=== PATIENT | male | born 1965 | race Caucasian/White ===

== ENCOUNTER 2020-02-14 14:40 | Outpatient (CLI) | payer MEDICARE, SELFPAY ==
--- NOTE | ~2020-02-14 | CT_ITS ---
EXAMINATION: CT lung screening DATE: 02/14/2020 15:27 INDICATION: Personal history of tobacco dependence, current smoker with 30 pack year history TECHNIQUE: Computed tomography (CT) of the chest was performed without intravenous contrast. The dose -length product (DLP) was 188.02 mGy-cm. 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 COMPARISON: None FINDINGS: There is a 2 mm nodule of the left upper lobe on image 43. There are multiple centrilobular groundglass nodules of the lung apices which measure up to 6 mm (image 35). Oval, smooth nodules in association with the major fissure on the left are consistent with fissural lymph nodes. There is no pleural effusion or pneumothorax. No pathologically enlarged thoracic lymph nodes are identified. The heart size is normal. There is calcified coronary artery atherosclerosis. Subendocardial fat deposit ion in the lateral wall of the left ventricle is consistent with prior myocardial infarction. There i s a 2.8 x 1.9 cm right supraclavicular mass. There is moderate thoracic spondylosis. There are partia lly imaged changes of anterior and posterior fusion procedures in the lower cervical spine. IMPRESSION: 1. Lung-RADS category 2S: Benign appearance or behavior. Continue annual screening with noncontrast l ow-dose chest CT in 12 months. 2. Right supraclavicular mass of unclear etiology which could reflect a neoplasm or complex cystic le anastasiia. Ultrasound-guided biopsy is recommended. This finding and recommendation were discussed with Ab TRAE Nowak at 0838 hours on 02/15/2020. Reviewed, dictated and finalized at location A. IMPRESSION: 1. Lung-RADS category 2S: Benign appearance or behavior. Continue annual screen ing with noncontrast low-dose chest CT in 12 months. 2. Right supraclavicular mass of unclear etiology which could reflect a neoplas m or complex cystic lesion. Ultrasound-guided biopsy is recommended. This findi ng and recommendation were discussed with Herlinda M. Beedy, PAC at 0838 hours on .
== END 2020-02-14 14:41 | disposition home or self-care (01) ==
PROVIDERS: PCP Family Medicine; Visit Provider Physician Assistant Medical
DX: Z12.2 Encounter for screening for malignant neoplasm of respiratory organs (principal); R91.8 Other nonspecific abnormal finding of lung field; Z87.891 Personal history of nicotine dependence
CPT/HCPCS: G0297

== ENCOUNTER 2020-03-12 13:15 | Outpatient (CLI) | payer MEDICARE, SELFPAY ==
--- NOTE | ~2020-03-12 | US_ITS ---
EXAMINATION: US soft tissue head and neck DATE: 03/12/2020 13:59 INDICATION: Localized swelling, mass, and lump, trunk. TECHNIQUE: Multiple grayscale and Doppler ultrasound images of the right neck were obtained. COMPARISON: Chest CT 02/14/2020, cervical spine CT 09/12/2018 FINDINGS: In the right supraclavicular region, there is a 2.5 x 2.3 cm thin-walled cyst without solid component. IMPRESSION: 1. 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 D ue to the lack of a solid component, the biopsy was canceled. Reviewed, dictated and finalized at location A. IMPRESSION: 1. Thin-walled cyst in right supraclavicular region without solid component, li yvrose a lymphangioma. Due to the lack of a solid component, the biopsy was cance led.
== END 2020-03-12 13:16 | disposition home or self-care (01) ==
LOC: ANHIMG 13:20
PROVIDERS: PCP Family Medicine; Visit Provider Physician Assistant Medical
DX: R22.2 Localized swelling, mass and lump, trunk (principal)
CPT/HCPCS: 76536

== ENCOUNTER 2020-05-16 01:42 | Outpatient (CLI) | payer MEDICARE, SELFPAY ==
[2020-05-16 18:40] LABS: SARS-CoV-2 RNA PCR Negative
== END 2020-05-16 01:43 | disposition home or self-care (01) ==
LOC: ANHCOVIDDT 01:42
PROVIDERS: PCP Family Medicine; Visit Provider Internal Medicine Gastroenterology
DX: Z01.812 Encounter for preprocedural laboratory examination (principal); Z20.828 Contact with and (suspected) exposure to other viral communicable diseases
CPT/HCPCS: 87635; C9803; U0003

== ENCOUNTER 2020-05-18 00:55 | Day surgery (SDC) | payer MEDICARE, SELFPAY ==
[2020-05-10 14:27] VITALS: BMI 27.1
[2020-05-18 11:16] VITALS: BP 112/68; PULSE 75; RESP 16; TEMP 36.6; O2SAT 100; BMI 26.9
[2020-05-18] MEDS: LACTATED RINGERS 1,000 ML 150 ML IV CONT (11:29)
--- NOTE | 2020-05-18 11:49 | PM.HPGS ---
History of Present Illness History of Present Illness Consent: Risks, benefits, and alternatives have been discussed and questions answered. Patient agrees to proceed with procedure. Chief complaint: Neoplasm Screening Narrative: Rober Noriega is a 55 year old male here for screening colonoscopy Review of Systems Constitutional: Constitutional: Denies headache(s) and Denies weakness Eyes: Eyes: Denies blurry vision ENT: Reports Normal hearing present, Denies headache(s) and Denies neck pain Cardiovascular: Cardiovascular: Denies chest pain and Denies dyspnea Respiratory: Respiratory: Denies dyspnea Gastrointestinal: Gastrointestinal: Reports no additional gastrointestinal complaints Genitourinary: Genitourinary: Denies dysuria Musculoskeletal: Musculoskeletal: Denies neck pain Integumentary/Breasts: Skin/Breast: Denies dry skin Neurologic: Reports Normal hearing present, Denies headache(s) and Denies weakness Psychiatric: Psychiatric: Denies anxiety Endocrine: Endocrine: Denies change in body appearance Hematologic/Lymphatic: Hematologic/Lymphatic: Denies easy bleeding Allergic/Immunologic: Allergic/Immunologic: Denies urticaria [facility] Past Medical History Medical History (Updated 05/18/20 @ 12:06 by Shahzad Clemons MD) Arthritis CAD in [place] artery has stent in place Colon cancer screening Dyslipidemia Social History Social History Years smoked: 40 Smoking status: Current every day smoker Tobacco type: cigarettes Alcohol intake: current Alcohol use details: Seldom Substance use: never Substance use type: does not use Gender identity (if verbalized by the patient): Male Meds Home Medications and Allergies Home Medications Medication Instructions Recorded Confirmed Type trazodone 100 mg tablet 100 mg PO DAILY #180 tablet 01/25/20 05/10/20 Rx venlafaxine 75 mg capsule,extended 75 mg PO DAILY #90 cap 01/31/20 05/10/20 Rx release 24 hr simvastatin 40 mg tablet 40 mg PO DAILY #30 tablet 03/05/20 05/10/20 Rx bupropion HCl 300 mg 24 hr tablet, 300 mg PO QAM #30 tablet 04/03/20 05/10/20 Rx extended release peg 3350-electrolytes 236 240 ml PO Q10M #4000 ml 04/25/20 Rx gram-22.74 gram-6.74 gram-5.86 gram solution aspirin 81 mg PO DAILY 05/10/20 05/10/20 History Allergies Allergy/AdvReac Type Severity Reaction Status Date / Time No Known Allergies Allergy Verified 05/18/20 11:15 Vital Signs Vital Signs - 24 hr 05/18/20 11:16 Temperature 97.9 F Pulse Rate 75 Respiratory Rate 16 Blood Pressure 112/68 Pulse Oximetry 100 Exam Const: General: comfortable and no acute distress HENMT: General nose exam: Normal nares present Eyes: General: appearance normal, both eyes and all related structures Neck: Neck: no JVD Resp: Auscultation: clear to auscultation bilaterally Cardio: Rate: regular rate Rhythm: regular rhythm GI: Inspection: non-distended GI Palp: Yes Soft to palpation Skin: General skin exam: normal color Neuro: General: gait normal Speech: normal speech Extrem: General: normal to inspection Psych: Mental Status: mental status grossly normal Assessment and Plan Assessment and plan (1) Colon cancer screening: Code(s): Z12.11 - Encounter for screening for malignant neoplasm of colon Status: Acute Assessment and Plan: will proceed with colonoscopy
--- NOTE | 2020-05-18 11:50 | WPDANESEPPF ---
Anes - Initial Pre Proc Eval Procedure: Operation Date: 05/18/20 12:30 Proposed Procedures p Screening Colonoscopy - Shahzad Clemons MD Date/Time: 05/18/20 11:50 Surgeon: Shahzad Clemons MD Pre Op Diagnosis: Neoplasm Screening Patient Data Age: 55 Gender: M Height: 6 ft 2 in Weight: 95.2 kg Last Vital Signs Temp 97.9 F 05/18/20 11:16 Pulse 75 05/18/20 11:16 Resp 16 05/18/20 11:16 BP 112/68 05/18/20 11:16 Pulse Ox 100 05/18/20 11:16 Allergies Allergy/AdvReac Type Severity Reaction Status Date / Time No Known Allergies Allergy Verified 05/18/20 11:15 Home Medications Medication Instructions Recorded Confirmed Type trazodone 100 mg tablet 100 mg PO DAILY #180 tablet 01/25/20 05/10/20 Rx venlafaxine 75 mg capsule,extended 75 mg PO DAILY #90 cap 01/31/20 05/10/20 Rx release 24 hr simvastatin 40 mg tablet 40 mg PO DAILY #30 tablet 03/05/20 05/10/20 Rx bupropion HCl 300 mg 24 hr tablet, 300 mg PO QAM #30 tablet 04/03/20 05/10/20 Rx extended release peg 3350-electrolytes 236 240 ml PO Q10M #4000 ml 04/25/20 Rx gram-22.74 gram-6.74 gram-5.86 gram solution aspirin 81 mg PO DAILY 05/10/20 05/10/20 History Patient hx anesthesia problems: none Family hx anesthesia problems: none [facility] Past Medical History Medical History (Updated 05/18/20 @ 11:49 by Lauri Lewis MD) Arthritis CAD in [place] artery has stent in place Dyslipidemia Social History Social History Years smoked: 40 Smoking status: Current every day smoker Tobacco type: cigarettes Alcohol intake: current Alcohol use details: Seldom Substance use: never Substance use type: does not use Gender identity (if verbalized by the patient): Male Anes - Eval Final PreProcedure Day of Procedure 05/18/20 11:50 Patient weight: normal Heart: regular rate and rhythm Lungs: clear to auscultation Airway: Mallampati scale class II Neurological: alert and oriented Last oral intake: >/= 8 hours ASA classification: III Emergent: no Anesthetic plan: proceed Anesthesia type and monitoring: general GIVS and standard monitoring Informed Consent: The patient's anesthetic plan and its attendant risks and benefits were discussed with the patient/family/POA. Questions were solicited and answers provided to the satisfaction of the patient/family/POA.
[2020-05-18 12:09] VITALS: BP 101/53; PULSE 68; RESP 17; O2SAT 96
[2020-05-18 12:19] VITALS: BP 101/53; PULSE 65; RESP 19; O2SAT 95
[2020-05-18 12:29] VITALS: BP 115/75; PULSE 64; RESP 18; O2SAT 97
== END 2020-05-18 12:52 | disposition home or self-care (01) ==
PROVIDERS: PCP Family Medicine; Visit Provider Internal Medicine Gastroenterology
PROC: 0DJD8ZZ Inspection of Lower Intestinal Tract, Via Natural or Artificial Opening Endoscopic (ICD-10-PCS; CPT 45378; principal; 2020-05-18 12:30)
DX: Z12.11 Encounter for screening for malignant neoplasm of colon (principal); K57.30 Diverticulosis of large intestine without perforation or abscess without bleeding; K64.8 Other hemorrhoids; I25.10 Atherosclerotic heart disease of native coronary artery without angina pectoris; E78.5 Hyperlipidemia, unspecified; Z95.5 Presence of coronary angioplasty implant and graft; Z79.82 Long term (current) use of aspirin; F17.210 Nicotine dependence, cigarettes, uncomplicated
CPT/HCPCS: 45378; J2001; J2704; J7120

== ENCOUNTER 2021-04-22 14:47 | Emergency (ER) | payer MEDICARE, SELFPAY ==
[2021-04-22 14:56] VITALS: BP 131/89; PULSE 76; RESP 16; TEMP 36.7; O2SAT 97
--- NOTE | 2021-04-22 15:19 | ED.GENADULT ---
HPI - General Adult General Chief complaint: Ear Stated complaint: clogged ears Source: patient Mode of arrival: ambulatory Limitations: no limitations History of Present Illness HPI narrative: Patient is a 56-year-old male presents to the [facility] via POV for evaluation of clogged ears that has been present for 3 days. Additionally he reports a history of cerumen impactions. Today symptom is identical to previous cerumen impactions. Denies associated signs and symptoms. No relief with OTC Debrox. Nothing improves or worsen symptoms. Related Data Home Medications Medication Instructions Recorded Confirmed aspirin 81 mg PO DAILY 05/10/20 04/22/21 Allergies Allergy/AdvReac Type Severity Reaction Status Date / Time No Known Allergies Allergy Verified 04/22/21 15:03 Review of Systems Review of Systems: Denies pain, fever, chills, sweats, change in appetite, poor p.o. intake, malaise, headache, rhinorrhea, sinus problems, tinnitus, vertigo, lightheadedness, hearing loss, muffled hearing, ear drainage, nausea, vomiting, sore throat, cough, shortness of breath, lymphadenopathy, chest pain, heart palpitations, and heart murmur. PMFSH Past Medical History Medical History Arthritis BMI 27.0-27.9,adult BMI 28.0-28.9,adult CAD in [place] artery has stent in place Colon cancer screening Dyslipidemia Physical exam, pre-employment Tobacco abuse Family History Family History Father Family history of lung cancer Patient's father is , Onset Age: 72 Social History Social History Years smoked: 40 Smoking status: Current every day smoker Tobacco type: cigarettes Alcohol intake: current Alcohol use details: Seldom Substance use: never Substance use type: does not use Gender identity (if verbalized by the patient): Male Comments I have reviewed and agree with the patient's past medical, surgical, social, and family hx as documented by the RN. There is no relevant family history pertinent to the presenting complaint. Exam Narrative: GENERAL: Well-appearing, well-nourished, and in no acute distress. HEAD: Normocephalic, atraumatic. No sinus tenderness or facial swelling appreciated. EYES: PERRLA and EOMI. No evidence of erythema, swelling, or drainage. ENT: Unable to visualize bilateral TMs due to moderate cerumen impactions and bilateral external ear canals. Bilateral external ears normal. Bilateral TMs are normal.No TM perforation. Nares clear, no rhinorrhea or epistaxis. Bilateral turbinates without erythema/ swelling. Mucous membranes moist and pink. Uvula is midline without erythema and swelling. No evidence of petechial rash, cobblestoning, lesions, ulcers, erythema, swelling, exudates, peritonsillar abscess, tenting, or drooling. Breath odor and voice normal. NECK: Supple. No Lymphadenopathy or nuchal rigidity appreciated. CHEST: Bilateral lung keys are clear to auscultation. No respiratory distress. No evidence of cough or pleuritic cp upon examination. HEART: Regular rate and rhythm. No murmur, gallop, or rub heard. EXTREMITIES: Normal range of motion. No edema. SKIN: Warm, dry, no rash. NEURO: No focal deficits. Alert and oriented x3. Course Vital Signs Vital signs: Vital Signs Temperature 98.1 F 04/22/21 14:56 Pulse Rate 76 04/22/21 14:56 Respiratory Rate 16 04/22/21 14:56 Blood Pressure 131/89 04/22/21 14:56 Pulse Oximetry 97 04/22/21 14:56 Temperature 98.1 F 04/22/21 14:56 Pulse Rate 76 04/22/21 14:56 Respiratory Rate 16 04/22/21 14:56 Blood Pressure 131/89 04/22/21 14:56 Pulse Oximetry 97 04/22/21 14:56 Due to an elevated blood pressure, I had a detailed discussion with the patient and/or guardian regarding the need for follow-up with their pr
== END 2021-04-22 15:55 | disposition home or self-care (01) ==
PROVIDERS: Emergency Provider Nurse Practitioner Family; PCP Family Medicine
DX: H61.23 Impacted cerumen, bilateral (principal); F17.210 Nicotine dependence, cigarettes, uncomplicated; M19.90 Unspecified osteoarthritis, unspecified site; I25.10 Atherosclerotic heart disease of native coronary artery without angina pectoris; Z95.5 Presence of coronary angioplasty implant and graft; E78.5 Hyperlipidemia, unspecified
CPT/HCPCS: 69209; 99212; A9270; G0463

== ENCOUNTER 2021-05-06 09:23 | Outpatient (CLI) | payer MEDICARE, SELFPAY ==
--- NOTE | 2021-05-06 09:31 | EST_ITS ---
Patient Info Name: Rober Noriega Age: 56 years : 1965 Gender: Male Ht: 73 in Wt: 216 lbs BSA: 2.26 m2 HR: 75 bpm BP: 141 / 87 mmHg Heart Rhythm: Sinus Rhythm Exam Date: 05/06/2021 10:20 AM Exam Location: [facility] Patient Status: Outpatient Admit Date: 05/06/2021 Staff Ordering Physician: Darwin Ann DO Ice Skating Teacher: BING Attending Provider: Darwin Ann DO Referring Physician: Seth GONZALEZ; Exercise Technologist: Marie Caban RDCS Exercise Physician: Darwin Ann DO Exam Type: CA stress echo Study Info Indications I25.10 - Atherosclerotic heart disease of [place] coronary artery without angina pectoris Treadmill exercise stress echocardiogram is performed. Summary 1. 1. Negative Marc exercise stress test for ischemic ST changes by ECG criteria. 2. 2. Good functional capacity, achieving 10.9 METs of workload. 3. 3. Baseline hypertension. 4. 4. Appropriate HR response to exercise. 5. 5. Appropriate HR recovery at 1 minute post exercise. 6. 6. Negative stress echocardiogram for ischemia by wall motion analysis. 7. 7. Patient informed of the above results. Stress Echo Findings Left Ventricle Appropriate increase in LV endocardial thickening with systole. Appropriate augmentation of contractility with systole. No wall motion abnormality. Left Ventricle Normal LV systolic function, no wall motion abnormality. Protocol: Marc Stress ECG Details Stage: REST Duration (min): 4 min : 54 sec Speed (mph): 0.0 Grade (%): 0 HR (bpm): 72 SBP (mmHg): 141 DBP (mmHg): 87 METS: --- Stage: REST Duration (min): 13 min : 22 sec Speed (mph): 0.0 Grade (%): 0 HR (bpm): 75 SBP (mmHg): 141 DBP (mmHg): 87 METS: --- Stage: STAGE 1 Duration (min): 1 min : 0 sec Speed (mph): 1.7 Grade (%): 10 HR (bpm): 95 SBP (mmHg): 141 DBP (mmHg): 87 METS: --- Stage: STAGE 1 Duration (min): 2 min : 0 sec Speed (mph): 1.7 Grade (%): 10 HR (bpm): 105 SBP (mmHg): 141 DBP (mmHg): 87 METS: --- Stage: STAGE 1 Duration (min): 3 min : 0 sec Speed (mph): 1.7 Grade (%): 10 HR (bpm): 110 SBP (mmHg): 187 DBP (mmHg): 83 METS: --- Stage: STAGE 2 Duration (min): 1 min : 0 sec Speed (mph): 2.5 Grade (%): 12 HR (bpm): 112 SBP (mmHg): 187 DBP (mmHg): 83 METS: --- Stage: STAGE 2 Duration (min): 2 min : 0 sec Speed (mph): 2.5 Grade (%): 12 HR (bpm): 116 SBP (mmHg): 192 DBP (mmHg): 81 METS: --- Stage: STAGE 2 Duration (min): 3 min : 0 sec Speed (mph): 2.5 Grade (%): 12 HR (bpm): 118 SBP (mmHg): 192 DBP (mmHg): 81 METS: --- Stage: STAGE 3 Duration (min): 1 min : 0 sec Speed (mph): 3.4 Grade (%): 14 HR (bpm): 127 SBP (mmHg): 196 DBP (mmHg): 83 METS: --- Stage: STAGE 3 Duration (min): 2 min : 0 sec Speed (mph): 3.4 Grade (%): 14 HR (bpm): 133 SBP (mmHg): 196 DBP (mmHg): 83 METS:
== END 2021-05-06 09:24 | disposition home or self-care (01) ==
PROVIDERS: PCP Family Medicine; Visit Provider Internal Medicine Cardiovascular Disease
DX: I25.10 Atherosclerotic heart disease of native coronary artery without angina pectoris (principal)
CPT/HCPCS: 93351

== ENCOUNTER 2022-01-14 13:59 | Outpatient (CLI) | payer MEDICARE, SELFPAY ==
--- NOTE | ~2022-01-14 | CT_ITS ---
EXAMINATION: CT lung screening DATE: 01/14/2022 14:23 INDICATION: Personal history of tobacco dependence TECHNIQUE: Computed tomography (CT) of the chest was performed without intravenous contrast. The dose -length product was 148.23 mGy-cm. Automated exposure control and iterative reconstruction technique were employed. COMPARISON: CT dated 02/14/2020 FINDINGS: Heart size is normal. No thoracic lymphadenopathy. No significant pleural or pericardial ef fusion. The upper abdomen is unremarkable. No endobronchial lesions. No pneumothorax. No focal air sp sascha disease. There is a 3.5 mm nodule left mid lung involving the major fissure, image 71. There is a fissural nodule measuring 4 mm, image 67. IMPRESSION: 1. Lung-RADS category 2: Benign appearance or behavior. Continue annual screening with noncontrast lo w-dose chest CT in 12 months. Reviewed, dictated and finalized at location A. IMPRESSION: 1. Lung-RADS category 2: Benign appearance or behavior. Continue annual screeni ng with noncontrast low-dose chest CT in 12 months.
== END 2022-01-14 14:00 | disposition home or self-care (01) ==
PROVIDERS: PCP Nurse Practitioner; Visit Provider Nurse Practitioner
DX: Z12.2 Encounter for screening for malignant neoplasm of respiratory organs (principal); Z87.891 Personal history of nicotine dependence
CPT/HCPCS: 71271

== ENCOUNTER 2022-07-03 15:34 | Emergency (ER) | payer OTHER, MEDICARE, SELFPAY ==
--- NOTE | ~2022-07-03 | XR_ITS ---
EXAMINATION: XR chest 2V DATE: 07/03/2022 16:23 INDICATION: Shortness of breath. Chest pain. TECHNIQUE: Frontal and lateral views of the chest were obtained. COMPARISON: Chest 2 views 12/16/2017, chest CT 01/14/2022 FINDINGS: The chest demonstrates clear lungs without pneumonia, pleural effusion, or pneumothorax. Th e heart size is normal. There are changes of anterior and posterior fusion procedures in cervical spi ne. IMPRESSION: 1. No acute cardiopulmonary disease. Reviewed, dictated and finalized at location A. R TENDER
[2022-07-03 15:50] VITALS: BP 147/86; PULSE 70; RESP 16; TEMP 36.8; O2SAT 98
[2022-07-03] MEDS: ACETAMINOPHEN 500 MG TABLET 1000 MG PO (16:31)
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
[2022-07-03 17:40] VITALS: BP 166/97; PULSE 67; RESP 18; O2SAT 99
== END 2022-07-03 17:41 | disposition home or self-care (01) ==
PROVIDERS: Emergency Provider Emergency Medicine; PCP Internal Medicine
DX: S13.4XXA Sprain of ligaments of cervical spine, initial encounter (principal); G44.209 Tension-type headache, unspecified, not intractable; I25.10 Atherosclerotic heart disease of native coronary artery without angina pectoris; E78.5 Hyperlipidemia, unspecified; M19.90 Unspecified osteoarthritis, unspecified site; Z95.5 Presence of coronary angioplasty implant and graft; F17.210 Nicotine dependence, cigarettes, uncomplicated; Z79.82 Long term (current) use of aspirin; V67.0XXA Driver of heavy transport vehicle injured in collision with fixed or stationary object in nontraffic accident, initial encounter
CPT/HCPCS: 71046; 99283; A9270

== ENCOUNTER 2022-07-24 08:57 | Outpatient (CLI) | payer OTHER, SELFPAY ==
--- NOTE | ~2022-07-24 | MR_ITS ---
EXAMINATION: MR cervical spine wo con DATE: 07/24/2022 09:58 INDICATION: Cervical radiculopathy. TECHNIQUE: Magnetic resonance imaging (MRI) of the cervical spine was performed without intravenous c ontrast. COMPARISON: CT cervical spine 09/12/2018, ultrasound 03/12/20 FINDINGS: There is 3 degrees dextrocurvature of cervical spine. There is 2 mm retrolisthesis of C4 on C5. There are changes of anterior fusion procedure from C5 to C7 with healed interbody bone graft an d anterior plate and screws. There is mild chronic anterior wedging of T1 vertebral body. There is mo derately decreased disc height at C2-C3 and severely decreased disc height at C3-C4, C4-C5 and C7-T1. The spinal cord signal intensity is normal. In the right supraclavicular region, there is a chronic 4.7 x 2.8 cm cystic mass, likely a lymphangioma. The following disc levels are specifically discussed : C2-C3: The disc is bulging. There is moderate bilateral uncovertebral joint osteoarthritis. There is severe bilateral facet joint osteoarthritis. There is mild bilateral neural foraminal stenosis. There is mild central canal stenosis. C3-C4: The disc is bulging. There is severe right and mild left uncovertebral joint osteoarthritis. T here is severe right and moderate left facet joint osteoarthritis. There is moderate right and mild l eft neural foraminal stenosis. There is moderate central canal stenosis with ventral and dorsal inden tation of the spinal cord. C4-C5: The disc is bulging. There is severe bilateral uncovertebral joint osteoarthritis. There is mo derate bilateral facet joint osteoarthritis. There is moderate right and severe left neural foraminal stenosis. There is severe central canal stenosis with ventral and dorsal indentation of the spinal c ord. C5-C6: There is mild bilateral uncovertebral joint hypertrophy. There is mild lateral facet joint hyp ertrophy. There is mild bilateral neural foraminal stenosis. There is no central canal stenosis. C6-C7: There is mild bilateral uncovertebral joint hypertrophy. There is mild bilateral facet joint h ypertrophy. There is mild bilateral neural foraminal stenosis. There is no central canal stenosis. C7-T1: The disc is bulging. There is severe bilateral uncovertebral joint osteoarthritis. There is se compa bilateral facet joint osteoarthritis. There is moderate right and mild left neural foraminal gonzales nosis. There is mild central canal stenosis. IMPRESSION: 1. Severe cervical spondylosis. 2. Anterior fusion procedure from C5 to C7. Reviewed, dictated and finalized at location A. [employer]
== END 2022-07-24 08:58 | disposition home or self-care (01) ==
PROVIDERS: PCP Internal Medicine; Visit Provider Internal Medicine
DX: M47.22 Other spondylosis with radiculopathy, cervical region (principal); Z98.1 Arthrodesis status
CPT/HCPCS: 72141

== ENCOUNTER 2022-08-11 13:26 | Outpatient (CLI) | payer OTHER, MEDICARE, SELFPAY ==
--- NOTE | ~2022-08-11 | MR_ITS ---
EXAMINATION: MR brain/brain stem wo con DATE: 08/11/2022 14:11 INDICATION: Headache. Aphasia. TECHNIQUE: Magnetic resonance imaging (MRI) of the brain and brainstem was performed without intraven ous contrast. COMPARISON: Brain MRI 10/26/2018, head CT 09/12/2018 FINDINGS: There is a punctate acute infarct in right cerebellum. There is an old infarct in lateral a spect of left temporal lobe. There is no intracranial hemorrhage or abnormal mass lesion. The ventric les are normal in size. There is mucosal thickening in the paranasal sinuses and nasal cavity. The or bits are normal. There is a trace right mastoid effusion. IMPRESSION: 1. 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 2. 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 Reviewed, dictated and finalized at location A. STRETCHER
== END 2022-08-11 13:27 | disposition home or self-care (01) ==
PROVIDERS: PCP Internal Medicine; Visit Provider Internal Medicine
DX: R41.3 Other amnesia (principal); S06.9X9A Unspecified intracranial injury with loss of consciousness of unspecified duration, initial encounter; X58.XXXA Exposure to other specified factors, initial encounter; R93.0 Abnormal findings on diagnostic imaging of skull and head, not elsewhere classified
CPT/HCPCS: 70551

== ENCOUNTER 2022-10-02 14:15 | Outpatient (RCR) | payer OTHER, SELFPAY ==
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
--- NOTE | 2022-10-07 12:41 | PCPTNOTE ---
Pt cancelled his appt today leaving a message with the it desktop support technician that he had to take his to the doctor.
--- NOTE | 2022-10-09 13:16 | PCPTNOTE ---
Pt called and cancelled treatment today due to a migraine.
--- NOTE | 2022-10-16 14:42 | PCPTNOTE ---
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
--- NOTE | 2022-11-04 13:20 | PCPTNOTE ---
Patient called as he has cancelled and we have no further treatments scheduled. Left voicemail to call the office and either schedule re-evaluation or let us know to discharge him.
--- NOTE | 2022-11-17 12:31 | PCPTNOTE ---
Admitting Provider: Attending Provider: Jose Luis Givens MD Patient:Rober Noriega Date of :1965 Patient has not returned for any further treatments since 10/02/2022, therefore he will be discharged at this time. Patient?s initial visit was on 09/16/2022 13:30 and (he/she) had a total of ___3 visits and 4 cancelations The goals have been not met. Thank you for referring this patient to [facility]. Please review, sign, date and return this discharge summary MIRIAN. I have been updated about the patient's current status and I agree with discharge from the above service at this time. Referring Physician Date
== END 2022-11-17 14:26 | disposition home or self-care (01) ==
LOC: ANHPT 14:15
PROVIDERS: PCP Internal Medicine; Visit Provider Internal Medicine
DX: M54.12 Radiculopathy, cervical region (principal)
CPT/HCPCS: 97110; 97140; 97162; 97530

== ENCOUNTER 2023-01-21 14:39 | Outpatient (CLI) | payer MEDICARE, SELFPAY ==
--- NOTE | ~2023-01-21 | CT_ITS ---
EXAMINATION: CTA brain carotid DATE: 01/21/2023 15:03 INDICATION: Cerebral infarction. TECHNIQUE: Computed tomographic angiography (CTA) of the head was performed without and with 100 mL O mnipaque-350 intravenous contrast. CTA of the neck was performed with intravenous contrast. Automated exposure control and iterative reconstruction technique were employed. The dose-length product was 1 882.40 mGy-cm. Maximum intensity projection and volume rendered 3D-reconstructions were created by kathe mckeon technologist on a separate workstation. COMPARISON: Head CT 09/12/2018, brain MRI 08/11/2022 FINDINGS: HEAD CTA: There is an old infarct in the left temporal lobe. There is no intracranial hemorrhage, acu te infarction, or abnormal intracranial mass lesion. The ventricles are normal in size. The orbits ar e normal. There is mild mucosal thickening in the ethmoid sinuses. The mastoid air cells are normal. The orbits are normal. The vertebral arteries are codominant. There is no significant stenosis of bas ilar artery or the posterior cerebral arteries. The posterior communicating arteries are normal. Ther e is no significant stenosis of the intracranial internal carotid arteries or anterior or middle cere bral arteries. Anterior communicating artery is normal. There is no aneurysm. NECK CTA: There is mild scarring at the lung apices. There are no pathologically enlarged lymph nodes . There is no significant stenosis of the vertebral arteries. There is plaque in the proximal interna l carotid arteries. There is 0% stenosis of the proximal right internal carotid artery relative to no rmal distal artery lumen diameter (NASCET criteria). There is 0% stenosis of the proximal left international editorial producer al carotid artery relative to normal distal artery lumen diameter. There is severe cervical spondylos is. There are changes of anterior and posterior fusion procedures from C5 to C7. IMPRESSION: 1. 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 2. No aneurysm or significant intracranial arterial stenosis. 3. 0% stenosis of the proximal internal carotid arteries relative to normal distal artery lumen diame ters (NASCET criteria). Reviewed, dictated and finalized at location A. IMPRESSION: 1. 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 2. No aneurysm or significant intracranial arterial stenosis. 3. 0% stenosis of the proximal internal carotid arteries relative to normal dis marc artery lumen diameters (NASCET criteria).
== END 2023-01-21 14:40 | disposition home or self-care (01) ==
PROVIDERS: PCP Family Medicine; Visit Provider Student in an Organized Health Care Education/Training Program
DX: I63.9 Cerebral infarction, unspecified (principal)
CPT/HCPCS: 70496; 70498; Q9967

== ENCOUNTER 2023-01-22 14:22 | Outpatient (CLI) | payer MEDICARE, SELFPAY ==
--- NOTE | ~2023-01-22 | CT_ITS ---
EXAMINATION: CT lung screening DATE: 01/22/2023 14:35 INDICATION: Personal history nicotine dependence, current smoker with 40 pack year history TECHNIQUE: Computed tomography (CT) of the chest was performed without intravenous contrast. The dose -length product (DLP) was 202.20 mGy-cm. Automated exposure control and iterative reconstruction tech [employer] were employed. COMPARISON: 01/14/2022 FINDINGS: Again noted are multiple centrilobular groundglass nodules of the lung apices measuring up to 6 mm. There is a stable 2 mm nodule of the left upper lobe on image 37. A fissural lymph node is n oted in the left major fissure. The lungs are free of focal airspace opacities. No pleural effusion o r pneumothorax. No pathologically enlarged thoracic lymph nodes are identified. The heart size is nor mal. There is calcified coronary artery atherosclerosis. Subendocardial fat deposition in the left ve ntricular apex is consistent with prior myocardial infarction. Again noted is a right supraclavicular lymphangioma with slight increase in size. IMPRESSION: 1. Lung-RADS category 2: Benign appearance or behavior. Continue annual screening with noncontrast lo w-dose chest CT in 12 months. Reviewed, dictated and finalized at location L. IMPRESSION: 1. Lung-RADS category 2: Benign appearance or behavior. Continue annual screeni ng with noncontrast low-dose chest CT in 12 months.
== END 2023-01-22 14:23 | disposition home or self-care (01) ==
PROVIDERS: PCP Family Medicine; Visit Provider Family Medicine
DX: Z12.2 Encounter for screening for malignant neoplasm of respiratory organs (principal); Z87.891 Personal history of nicotine dependence
CPT/HCPCS: 71271

== ENCOUNTER 2023-02-05 12:26 | Outpatient (CLI) | payer MEDICARE, SELFPAY ==
--- NOTE | 2023-02-05 12:35 | ECG_ITS ---
Measurements Intervals [place] Rate: 70 P: 41 CO: 164 QRS: -39 QRSD: 104 T: 67 QT: 404 QTc: 436 Interpretive Statements SINUS RHYTHM WITH OCCASIONAL VENTRICULAR PREMATURE COMPLEXES MARKED LEFT AXIS DEVIATION [QRS AXIS < -30] NO PREVIOUS ECG AVAILABLE FOR COMPARISON Electronically Signed On 02-05-2023 14:06:32 CDT by Karla Pope M.D.
--- NOTE | 2023-02-05 13:03 | ECHO_ITS ---
Patient Info Name: Rober Noriega Age: 58 years : 1965 Gender: Male Ht: 74 in Wt: 215 lbs BSA: 2.27 m2 HR: 65 bpm BP: 123 / 87 mmHg Technical Quality: Fair Exam Date: 02/05/2023 1:16 PM Exam Location: [facility] Patient Status: Outpatient Admit Date: 02/05/2023 Staff Ordering Physician: Layla Basilio MD Principal Consultant: Karmen Zaragoza RDCS Attending Provider: Layla Basilio MD Exam Type: CA echo doppler w bubble study Study Info Indications - cerebral infarction Complete two-dimensional, color flow and Doppler transthoracic echocardiogram is performed with agitated saline. Contrast/Agitated Saline Contrast/Ag. Saline: Agitated Saline Amount: 20.00 ml Administered By: Marie Caban RDCS New IV Access: Antecubital Space and Left Site Condition: IV removed Summary 1. Left ventricular chamber dimension is moderately enlarged. 2. Left ventricular systolic function is moderately reduced, estimated at 35-40%. 3. The left ventricular diastolic function is grade I diastolic dysfunction. 4. E/e' 5 is not elevated. 5. Global longitudinal strain is abnormal at -15.0%. 6. Agitated saline injection with and without valsalva maneuver opacified right side cardiac chambers with shunt to left side cardiac chambers. 7. There is mild aortic valve sclerosis. 8. There is trace tricuspid valve regurgitation. Left Ventricle E/e' 5 is not elevated. Global longitudinal strain is abnormal at -15.0%. Left ventricular chamber dimension is moderately enlarged. Left ventricular systolic function is moderately reduced, estimated at 35-40%. The left ventricular diastolic function is grade I diastolic dysfunction. Right Ventricle Right ventricular systolic function is normal and with normal TAPSE 2.1 cm. Right ventricular chamber dimension is normal. Left Atria Left atrial chamber dimension is normal. Right Atria Right atrial chamber dimension is mildly enlarged. Atrial Septum Agitated saline injection with and without valsalva maneuver opacified right side cardiac chambers with shunt to left side cardiac chambers. Suspected patent foramen ovale visualized by 2D and agitated saline imaging. Aortic Valve The aortic valve is trileaflet. There is mild aortic valve sclerosis. There is no aortic valve stenosis. There is no aortic valve regurgitation. Pulmonic Valve There is no pulmonic regurgitation. Mitral Valve There is no mitral valve stenosis. There is no mitral valve regurgitation. Tricuspid Valve There is trace tricuspid valve regurgitation. RVSP is not calculated due to an inadequate TR jet. Pericardium/Pleural There is no pericardial effusion. Inferior Vena Cava Normal inferior vena cava with >50% collapse upon inspiration consistent with normal right atrial pressure, 5 mmHg. Aorta The aortic root size at the sinus of Valsalva is normal. Left Ventricular Outflow Tract Name Value Normal LVOT 2D LVOT Diameter 2.1 cm LVOT Doppler LVOT Peak Gradient 4 mmHg LVOT Mean Gradient 2 mmHg LVOT VTI 19 cm LVOT VTI/AV VTI Ratio 1.1
== END 2023-02-05 12:27 | disposition home or self-care (01) ==
PROVIDERS: PCP Family Medicine; Visit Provider Student in an Organized Health Care Education/Training Program
DX: I63.9 Cerebral infarction, unspecified (principal)
CPT/HCPCS: 93005; 93306; 96375

== ENCOUNTER 2023-04-08 15:21 | Emergency (ER) | payer MEDICARE, SELFPAY ==
--- NOTE | ~2023-04-08 | XR_ITS ---
EXAMINATION: XR chest 2V DATE: 04/08/2023 16:06 INDICATION: Shortness of breath and right-sided neck, shoulder and arm pain. TECHNIQUE: PA and lateral views of the chest were obtained. COMPARISON: Chest radiograph dated 07/03/[address] dated 01/22/2023 FINDINGS: The lungs remain clear with no focal airspace opacities, pulmonary edema, pleural effusion or pneumot horax. The cardiomediastinal silhouette is normal. Moderate upper thoracic spondylosis. Combined inst rumented C5-C7 anterior and posterior spinal fusion with anterior plate and screw and bilateral verti wilma curtis and lateral mass screw fixations. IMPRESSION: 1. No acute cardiopulmonary disease. Reviewed, dictated and finalized at location A.
[2023-04-08 15:27] VITALS: BP 124/84; PULSE 80; RESP 20; TEMP 36.4; O2SAT 98
--- NOTE | 2023-04-08 15:32 | ECG_ITS ---
Measurements Intervals [place] Rate: 80 P: 36 ME: 180 QRS: -42 QRSD: 105 T: 72 QT: 368 QTc: 427 Interpretive Statements SINUS RHYTHM LEFT AXIS DEVIATION INCOMPLETE RIGHT BUNDLE BRANCH BLOCK NONSPECIFIC T-WAVE ABNORMALITY BORDERLINE ECG NO PREVIOUS ECG AVAILABLE FOR COMPARISON Electronically Signed On 04-08-2023 16:14:59 CDT by Eder Moore M.D.
[2023-04-08 15:48] VITALS: PULSE 78; RESP 26; O2SAT 95
[2023-04-08 15:55] LABS: Basophils Percent Auto 0.4 % (0.2-1.2); Eosinophils Absolute Auto 0.1 K/mm3 (0-0.3); Eosinophils Percent Auto 0.9 % (0-4.4); Hematocrit 47.8 % (42.0-52.0); Hemoglobin 16.5 g/dL (14.0-18.0); Immature Granulocyte Absolute 0.02 K/mm3 (0.00-0.031); Immature Granulocyte Percent A 0.3 % (0-0.5); Lymphocytes Absolute Auto 1.67 K/mm3 (0.9-3.2); Lymphocytes Percent Auto 24.1 % (18.3-44.2); Mean Corpuscular HGB Conc 34.5 g/dl (32-36); Mean Corpuscular Volume 92.6 fl (80-100); Mean Platelet Volume 11.2 fl (7.4-10.4); Monocytes Absolute Auto 0.6 K/mm3 (0.1-0.6); Monocytes Percent Auto 8.4 % (2.6-8.5); Neutrophils Absolute Auto 4.6 K/mm3 (1.3-6.7); Neutrophils Percent Auto 65.9 % (45.5-73.1); Platelet Count Result 198 k/mm3 (150-375); Red Blood Count 5.16 M/mm3 (4.6-6.20); Red Cell Distribution Width 13.2 % (11.5-14.5); White Blood Count 6.9 K/mm3 (4.5-10.0)
[2023-04-08 16:04] LABS: Alanine Aminotransferase 27 U/L (6-50); Albumin Level 4.5 g/dL (3.5-5.1); Alkaline Phosphatase 90 U/L (38-126); Anion Gap 8 mmol/L (8-16); Aspartate Amino Transferase 25 U/L (17-59); Bilirubin,Total 0.6 mg/dL (0.2-1.3); Blood Urea Nitrogen 15 mg/dL (9-20); Calcium 9.2 mg/dL (8.4-10.2); Carbon Dioxide 25 mmol/L (22-30); Chloride 102 mmol/L (98-107); Estimated CRCL calculation 69 ml/min; Estimated Glomerular Filt Rate > 60; Glucose 110 mg/dL (65-110); Potassium 4.3 mmol/L (3.4-5.0); Sodium 135 mmol/L (137-145)
[2023-04-08 16:05] VITALS: PULSE 75; RESP 15; O2SAT 96
--- NOTE | 2023-04-08 16:10 | PC.NURSE ---
pt reports pain in right scapula and right side of the neck. Neck pain increases with movement
--- NOTE | 2023-04-08 16:12 | ED.GENADULT ---
HPI - General Adult General Chief complaint: Shortness of Breath/Dyspnea Stated complaint: Right arm shoulder pain Time Seen by Provider: 04/08/23 15:32 History of Present Illness HPI narrative: 58-year-old male with history of coronary disease presented the ED for evaluation of right arm and right shoulder pain. Patient reports symptoms started at approximately 11 AM this morning. Patient denies any falls or injuries. Patient is a smoker. Patient does report having right neck and right shoulder pain. Patient states he does have history of neck pain and is scheduled to have surgical repair in a few weeks. Patient reports he did have a cardiac stent placed in 2006. Patient reports this was due to his having high cholesterol. Related Data Allergies Allergy/AdvReac Type Severity Reaction Status Date / Time No Known Allergies Allergy Verified 04/08/23 18:01 Review of Systems Review of Systems: All systems reviewed & are unremarkable except as noted in HPI and below Exam Narrative: APPEARANCE: Well appearing, no pain, no distress, well-nourished. HEAD: normocephalic, atraumatic. EYES: PERRLA/EOMI, conjunctivae clear. NOSE: Normal no drainage NECK: Supple. No adenopathy, no masses. RESPIRATORY: Airway patent, respirations nonlabored. Clear to auscultation bilaterally, no rales, rhonchi, wheezing. CARDIOVASCULAR: Regular rate and rhythm without murmurs rubs or gallops. ABDOMINAL: Soft, nontender, nondistended, normal bowel sounds MUSCULOSKELETAL: Moves all extremities. Strength/ROM intact, No edema, No calf tenderness. NEURO: Alert. Cranial nerves II through XII intact. Grossly intact SKIN: Warm, dry. Normal Color Course Course Emergency Course: 58-year-old male presented ED for evaluation of right shoulder and right-sided chest pain. Patient is afebrile with [facility] and a stable hemoglobin. Patient's D-dimer was not elevated patient had a normal CMP with negative serial troponins. Chest x-ray showed no acute cardiopulmonary normality. Patient was updated the results of his work-up and patient was pain. Have a discharge. Patient was encouraged of close follow-up with his primary care physician for further outpatient cardiac testing. All questions and concerns were addressed. Vital Signs Vital signs: Vital Signs Temperature 97.5 F L 04/08/23 15:27 Pulse Rate 80 04/08/23 15:27 Respiratory Rate 20 04/08/23 15:27 Blood Pressure 124/84 04/08/23 15:27 Pulse Oximetry 98 04/08/23 15:27 Oxygen Delivery Room Air 04/08/23 15:27 Temperature 97.8 F 04/08/23 16:46 Pulse Rate 66 04/08/23 19:45 Respiratory Rate 14 04/08/23 19:45 Blood Pressure 138/93 H 04/08/23 19:45 Pulse Oximetry 100 04/08/23 19:45 Oxygen Delivery Room Air 04/08/23 15:27 Medical Decision Making Differential Diagnosis Differential Diagnosis: Muscular strain, pneumonia, pneumothorax, pulm embolism, coronary disease Vital Signs Vital Signs: Vital Signs Temperature 97.5 F L 04/08/23 15:27 Pulse Rate 80 04/08/23 15:27 Respiratory Rate 20 04/08/23 15:27 Blood Pressure 124/84 04/08/23 15:27 Pulse Oximetry 98 04/08/23 15:27 Oxygen Delivery Room Air 04/08/23 15:27 Temperature 97.8 F 04/08/23 16:46 Pulse Rate 66 04/08/23 19:45 Respiratory Rate 14 04/08/23 19:45 Blood Pressure 138/93 H 04/08/23 19:45 Pulse Oximetry 100 04/08/23 19:45 Oxygen Delivery Room Air 04/08/23 15:27 Lab Data 04/08/23 15:48 04/08/23 15:48 Labs: Lab Results 04/08/23 04/08/23 04/08/23 Range/Units 15:47 15:48 18:43 WBC 6.9 (4.5-10.0) K/mm3 RBC 5.16 (4.6-6.20) M/mm3 Hgb 16.5 (14.0-18.0) g/dL Hct 47.8 (42.0-52.0) % MCV 92.6 (80-100) fl MCH 32.0 (26-34) pg MCHC 34.5 (32-36) g/dl RDW 13.2 (11.5-14.5) % Plt Count 198 (150-375) k/mm3 MPV 11.2 H (7.4-10.4) fl Immature Gran % (Auto) 0.3 (0-0.5) %
[2023-04-08 16:22] VITALS: BP 126/92; PULSE 71; RESP 20; O2SAT 97
[2023-04-08] MEDS: MORPHINE SULFATE (*CRX) 4 MG/ML INJ IV PUSH (16:36)
[2023-04-08] MEDS: ASPIRIN 81 MG CHEWABLE TABLET 324 MG PO (16:36)
[2023-04-08] MEDS: CYCLOBENZAPRINE HCL 10 MG TABLET PO (16:36)
[2023-04-08] MEDS: Please add drug allergy info to patient profile. 1 EACH XX (16:37)
[2023-04-08 16:46] VITALS: BP 127/90; PULSE 72; RESP 17; TEMP 36.6; O2SAT 97
[2023-04-08 16:58] LABS: D Dimer 0.32 ug/mL (<0.48)
[2023-04-08 17:21] LABS: Troponin I < 0.012 ng/mL (0.000-0.034)
[2023-04-08 19:17] LABS: Troponin I < 0.012 ng/mL (0.000-0.034)
[2023-04-08 19:45] VITALS: BP 138/93; PULSE 66; RESP 14; O2SAT 100
== END 2023-04-08 20:14 | disposition home or self-care (01) ==
PROVIDERS: Emergency Provider Emergency Medicine; PCP Family Medicine
DX: R07.9 Chest pain, unspecified (principal); E78.00 Pure hypercholesterolemia, unspecified; F17.200 Nicotine dependence, unspecified, uncomplicated; Z95.5 Presence of coronary angioplasty implant and graft; I45.10 Unspecified right bundle-branch block; R94.31 Abnormal electrocardiogram [ECG] [EKG]
CPT/HCPCS: 36415; 71046; 80053; 84484; 85025; 85380; 93005; 96374; 99284; A9270; J2270

== ENCOUNTER 2023-04-21 08:21 | Outpatient (CLI) | payer MEDICARE, SELFPAY ==
--- NOTE | ~2023-04-21 | NM_ITS ---
EXAMINATION: NM courtney stress w perfusion DATE: 04/21/2023 10:46 INDICATION: Atherosclerotic heart disease TECHNIQUE: Rest images were obtained following intravenous administration of 10.3 mCi Tc99m tetrofosm in (Myoview). The patient was infused intravenously with Lexiscan (Regadenoson). Then, 33.3 mCi Tc99m tetrofosmin (Myoview) was administered intravenously, and stress images were obtained initially in t he supine position and subsequently with repeat post stress imaging performed in the prone position. Data was reconstructed into short axis and horizontal and vertical long axis SPECT images. Gated SPEC T images were also obtained. COMPARISON: Chest CT dated 01/22/2023 FINDINGS: There is a large predominantly nonreversible severe perfusion defect involving the apical l ateral, mid anterolateral and posterolateral and basilar anterolateral and posterolateral segments co nsistent with infarct. There is corresponding fatty atrophy of the associated myocardium along the la teral wall the left ventricle on the prior CT. There is a slight decrease in severity of the perfusio n defect at the apical lateral and mid and basilar anterolateral segments on the rest imaging suggest ing a small component of superimposed ischemia. There is normal left ventricular chamber size, wall motion and ejection fraction. Left ventricular ejection fraction measures 61%. IMPRESSION: 1. Normal myocardial perfusion at rest and during stress. 2. Left ventricular ejection fraction measuring 61%. Reviewed, dictated and finalized at location A.
== END 2023-04-21 08:22 | disposition home or self-care (01) ==
PROVIDERS: PCP Family Medicine; Visit Provider Internal Medicine Cardiovascular Disease
DX: I25.10 Atherosclerotic heart disease of native coronary artery without angina pectoris (principal)
CPT/HCPCS: 78452; A9502; J2785

== ENCOUNTER 2023-06-17 07:13 | Outpatient (CLI) | payer MEDICARE, SELFPAY ==
--- NOTE | 2023-06-17 07:23 | ECHO_ITS ---
Patient Info Name: Rober Noriega Age: 58 years : 1965 Gender: Male Ht: 73 in Wt: 220 lbs BSA: 2.29 m2 HR: 70 bpm BP: 157 / 111 mmHg Heart Rhythm: Sinus Rhythm Technical Quality: Fair Exam Date: 06/17/2023 7:45 AM Exam Location: [facility] Patient Status: Outpatient Admit Date: 06/17/2023 Staff Ordering Physician: Darwin Ann DO International Freight Forwarder: Lydia Guerra RDCS Attending Provider: Darwin Ann DO Referring Physician: Seth GONZALEZ; Exam Type: CA echo doppler color flow Study Info Indications I51.9 - Heart disease, unspecified Complete two-dimensional, color flow and Doppler transthoracic echocardiogram is performed. Strain analysis performed. Summary 1. Complete two-dimensional, color flow and Doppler transthoracic echocardiogram is performed. 2. Left ventricular chamber dimension is normal. 3. Left ventricular systolic function is normal, estimated at 55-60%. 4. There is mild concentric increased left ventricular wall thickness. 5. The left ventricular diastolic function is grade I diastolic dysfunction. 6. E/e' 4 is not elevated. 7. Global longitudinal strain is abnormal at -12.7%. 8. Left atrial chamber dimension is mildly enlarged. 9. There is mild mitral valve regurgitation. 10. There is trace tricuspid valve regurgitation. 11. No pulmonary hypertension, estimated pulmonary arterial systolic pressure is 19 mmHg. Left Ventricle E/e' 4 is not elevated. Global longitudinal strain is abnormal at -12.7%. Left ventricular chamber dimension is normal. Left ventricular systolic function is normal, estimated at 55-60%. There is mild concentric increased left ventricular wall thickness. The left ventricular diastolic function is grade I diastolic dysfunction. Right Ventricle Right ventricular systolic function is normal and with normal TAPSE 1.8 cm. Right ventricular chamber dimension is normal. Left Atria Left atrial chamber dimension is mildly enlarged. Right Atria Right atrial chamber dimension is normal. Aortic Valve The aortic valve is trileaflet. There is no aortic valve stenosis. There is no aortic valve regurgitation. Pulmonic Valve There is no pulmonic regurgitation. Mitral Valve There is no mitral valve stenosis. There is mild mitral valve regurgitation. Tricuspid Valve There is trace tricuspid valve regurgitation. No pulmonary hypertension, estimated pulmonary arterial systolic pressure is 19 mmHg. Pericardium/Pleural There is no pericardial effusion. Inferior Vena Cava Normal inferior vena cava with >50% collapse upon inspiration consistent with normal right atrial pressure, 5 mmHg. Aorta The aortic root size at the sinus of Valsalva is normal. Left Ventricular Outflow Tract Name Value Normal LVOT 2D LVOT Diameter 2.0 cm LVOT Doppler LVOT Peak Gradient 4 mmHg LVOT Mean Gradient 2 mmHg LVOT VTI 18 cm LVOT VTI/AV VTI Ratio 0.9 LVOT Stroke Volume 60 ml LVOT CO 3.9 l/min LVOT CI 1.7 l/min/m2 Pulmonic Valve
== END 2023-06-17 07:14 | disposition home or self-care (01) ==
PROVIDERS: PCP Family Medicine; Visit Provider Internal Medicine Cardiovascular Disease
DX: I34.0 Nonrheumatic mitral (valve) insufficiency (principal)
CPT/HCPCS: 93306

== ENCOUNTER 2024-07-19 08:32 | Outpatient (CLI) | payer MEDICARE, SELFPAY ==
--- NOTE | 2024-07-19 08:36 | EST_ITS ---
Patient Info Name: Rober Noriega Age: 59 years : 1965 Gender: Male Ht: 74 in Wt: 213 lbs BSA: 2.26 m2 HR: 81 bpm BP: 140 / 80 mmHg Exam Date: 07/19/2024 8:46 AM Exam Location: [facility] Patient Status: Outpatient Admit Date: 07/19/2024 Staff Ordering Physician: Darwin Ann DO Attending Provider: Darwin Ann DO Exercise Technologist: Lydia Guerra RD Exercise Physician: Darwin Ann DO Exam Type: CA stress test treadmill Study Info A treadmill exercise stress test was performed. Summary 1. 1. Negative Marc exercise stress test for ischemic ST changes by ECG criteria. 2. 2. Good functional capacity, achieving 10 METs of workload. 3. 3. Appropriate HR response to exercise. 4. 4. Appropriate HR recovery at 1 minute post exercise. 5. 5. No imaging with stress testing. 6. 6. Patient informed of the above results. Protocol: Marc Stress ECG Details Stage: REST Duration (min): 1 min : 21 sec Speed (mph): 0.0 Grade (%): 0 HR (bpm): 82 SBP (mmHg): 140 DBP (mmHg): 80 METS: --- Stage: REST Duration (min): 4 min : 59 sec Speed (mph): 0.0 Grade (%): 0 HR (bpm): 83 SBP (mmHg): 140 DBP (mmHg): 80 METS: --- Stage: STAGE 1 Duration (min): 1 min : 0 sec Speed (mph): 1.7 Grade (%): 10 HR (bpm): 98 SBP (mmHg): 140 DBP (mmHg): 80 METS: --- Stage: STAGE 1 Duration (min): 2 min : 0 sec Speed (mph): 1.7 Grade (%): 10 HR (bpm): 110 SBP (mmHg): 140 DBP (mmHg): 80 METS: --- Stage: STAGE 1 Duration (min): 3 min : 0 sec Speed (mph): 1.7 Grade (%): 10 HR (bpm): 117 SBP (mmHg): 188 DBP (mmHg): 78 METS: --- Stage: STAGE 2 Duration (min): 1 min : 0 sec Speed (mph): 2.5 Grade (%): 12 HR (bpm): 123 SBP (mmHg): 188 DBP (mmHg): 78 METS: --- Stage: STAGE 2 Duration (min): 2 min : 0 sec Speed (mph): 2.5 Grade (%): 12 HR (bpm): 127 SBP (mmHg): 191 DBP (mmHg): 80 METS: --- Stage: STAGE 2 Duration (min): 3 min : 0 sec Speed (mph): 2.5 Grade (%): 12 HR (bpm): 131 SBP (mmHg): 191 DBP (mmHg): 80 METS: --- Stage: STAGE 3 Duration (min): 1 min : 0 sec Speed (mph): 3.4 Grade (%): 14 HR (bpm): 137 SBP (mmHg): 199 DBP (mmHg): 97 METS: --- Stage: STAGE 3 Duration (min): 2 min : 0 sec Speed (mph): 3.4 Grade (%): 14 HR (bpm): 141 SBP (mmHg): 199 DBP (mmHg): 97 METS: --- Stage: STAGE 3 Duration (min): 2 min : 0 sec Speed (mph): 3.4 Grade (%): 14 HR (bpm): 142 SBP (mmHg): 199 DBP (mmHg): 97 METS: --- Stage: RECOVERY Duration (min): 0 min : 59 sec Speed (mph): 0.0 Grade (%): 0 HR (bpm): 134 SBP (mmHg): 199 DBP (mmHg): 97 METS: --- Stage: RECOVERY Duration (min): 1 min : 59 sec Speed (mph): 0.0 Grade (%): 0 HR (bpm): 118 SBP (mmHg): 199 DBP (mmHg): 97 METS: --- Stage: RECOVERY Duration (min): 2 min : 59 sec Speed (mph): 0.0 Grade (%): 0 HR (bpm): 110 SBP (mmHg): 175 DBP (mmHg): 83 METS: --- Stage: RECOVERY Duration (min): 3 min : 12 sec Speed (mph): 0.0 Grade (%): 0 HR (bpm): 110 SBP (mmHg): 175 DBP (mmHg): 83 METS: --- Rest HR: 83 bpm Peak HR: 144 bpm Rest Sys BP: 140 mmHg Peak Sys BP: 199 mmHg Max Pred HR: 160 bpm % Max Pred HR: 90 % Target HR: 136 bpm Max RPP: 28,656 bpm*mmHg Martinez Score: -5 Termination Reason: Reached target heart rate or workload Cardiac Symptoms: Shortness of breath Max ST Seg Deviation: 2.60 mm Total Time: 8 min : 0 sec Rest Rueda BP: 80 mmHg Peak Rueda BP: 97 mmHg Angina Score: None Total METS: 10.3 Resting ECG Sinus rhythm. Stress ECG No ST changes. Arrhythmias None. Report Signatures
== END 2024-07-19 08:33 | disposition home or self-care (01) ==
PROVIDERS: PCP Family Medicine; Visit Provider Internal Medicine Cardiovascular Disease
DX: I25.10 Atherosclerotic heart disease of native coronary artery without angina pectoris (principal)
CPT/HCPCS: 93017

== ENCOUNTER 2024-09-28 18:28 | Emergency (ER) | payer MEDICARE, SELFPAY ==
[2024-09-28 18:28] VITALS: BP 160/80; PULSE 80; RESP 20; TEMP 36.4; O2SAT 100
--- NOTE | 2024-09-28 23:30 | PC.NURSE ---
Pt approached triage desk stating he was going to leave due to wait times. Pt brought into triage bay to remove iv. Pt advised to be seen at nearest ED if he feels necessary. Pt ambulated to ED exit with steady gait and no signs for concern at this time. C Collar removed. IV removed with tip intact.
--- OUTSIDE RECORDS SUMMARY | 2024-09-28 23:52 | XMS_ITS | Clinical Summary ---
Author Organization [facility] [place] [address] Address [address] [place] [address] Care Team Providers Care Telephone Clerks Supervisor Name Role Phone Jefferson Francis MD Primary Care Provider [phone] Allergies No known active allergies Medications simvastatin (ZOCOR) 40 mg tablet take 1 tablet (40MG) by oral route every day in the evening 30 6 10/17/2011 Active venlafaxine XR (EFFEXOR XR) 75 mg 24 hr capsule take 1 capsule by oral route every day with food 0 0 02/08/2015 Active traZODone (DESYREL) 100 mg tablet take 1 (100MG) by oral route every day at bedtime 0 0 02/08/2015 Active aspirin (ASPIR-81) 81 mg tablet take 1 tablet by oral route every day 0 0 02/08/2015 Active buPROPion XL (WELLBUTRIN XL) 300 mg 24 hr tablet 05/25/2020 Active atorvastatin (LIPITOR) 40 mg tablet 11/17/2022 Active clopidogreL (PLAVIX) 75 mg tablet 11/17/2022 Active famotidine (PEPCID) 40 mg tablet 09/15/2022 Active IBU 600 mg tablet 08/29/2022 Active Hospital, Clinic, or Other Facility Administered Medication Ordered Dose Route Frequency Start Date End Date Status onabotulinumtoxin A (BOTOX) injection 200 UnitsIndications:Cer vical dystonia 200 Units IM Once for Clinic-Administer ed Medication 09/14/2024 09/13/2025 Active Active Problems Problem Noted Date Diagnosed Date 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 Noriega presented for a follow up. He continued to have head and neck tremor with benefit from BTX injections. He had an incident at work and was diagnosed with whiplash and he felt his tremor worsened after this. He also felt his vision worsened, his sleep worsened, his memory and thinking was not as good after the incident at work last week. Today his balance was steady and he was able to do a few tandem steps. He had mild hand tremor and moderate tremor in his head. Recommendations: 1. Continue BTX injections with Dr. Ruff 2. May try OTC melatonin 5mg for sleep. Continue the same bupropion for now 3. Continue to follow up with PCP on work related incident 4. Follow up in 6 months and make appt with Dr. Ruff for rov in the future Assessment & Plan (06/20/2020 2:36 PM CDT): Mr Noriega presents with over a decade if almost two decades of head tremor with previous response to botox. On our exam today he has a no-no head tremor that is intermittent in nature and can be worsened by neck flexion and turning to the left. He also has bilateral postural and intention tremor that is mild with the left side being slightly worse then the right. Given the positional nature of his head tremor and the history per of the occasional right head tilt I am leaning more towards dystonic tremor as the etiology of his disease although essential tremor is also on the differential. I do not see significant signs to suggest Parkinsonism as a cause of his symptoms. 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 Overall his tremor is relatively mild and the only bothersome feature for the patient is his head tremor. He has tried other medications previously (propranol + topamax) per documentation with little benefit. This is perhaps not surprising as axial tremor tends to not respond as well to systemic medications. He has had good benefit from botulinum toxin injections in the past. Benefit has worn off and he is an appropriate candidate for botulinum injections. Potential risks/benefits were discussed. We will schedule him for the next available btx appt. 1) our office to schedule for next available btx, 2) no meds for now- consider primidone; might also consider baclofen or even trihexyphenidyl if no response to btx. 3) our office to confirm 200U btx for cervical injections. I have seen and examined the patient. I agree with the findings and plan of care as documented in the resident's / fellow's note, and discussed this with the resident/fellow. Cervical dystonia 06/20/2020 Assessment & Plan (07/11/2020 7:55 AM SPACER TYPE BAR AND SEGMENT): He has cervical dystonia with head/neck tremor that has previously responded well to btx. Most recent injections were over 5 years ago and benefit has worn off. He is an excellent candidate for botulinum toxin injections. Potential risks/benefits were discussed and signed consent obtained. I will start with a dose similar to that effective in the past- we may need to titrate according to response. History of depression 07/02/2016 Overview (11/28/2016): History of depression Coronary arteriosclerosis in [place] artery 07/02 Overview (11/28/2016): Coronary artery disease involving [place] coronary artery of [place] heart without angina pectoris Hyperlipidemia 07/02/2016 Overview (11/28/2016): Hyperlipidemia LDL goal <70 Generalized ischemic myocardial dysfunction 04/2016 Overview (11/28/2016): Ischemic cardiomyopathy Atherosclerosis of coronary artery 02/08/2015 Overview (11/28/2016): CAD (coronary atherosclerotic disease) Tobacco dependence syndrome 02/08/2015 Overview (11/28/2016): Tobacco abuse Cardiomyopathy 02/08/2015 Overview (11/28/2016): Cardiomyopathy Cramps of lower extremity 02/08/2015 Overview (11/28/2016): Leg cramps Hypercholesterolemia 02/08/2015 Overview (11/28/2016): Hypercholesterolemia Depression 02/08/2015 Overview (11/28/2016): Depression Encounters Date Type Department Care Team Description 09/28/2024 11:20 AM SPACER TYPE BAR AND SEGMENT Procedure visit [facility] Movement Disorders [facility] 6th [place] [address] [place] [address] Abiodun Ruff MD Cervical dystonia (Primary Dx) from Last 3 Months Surgical History Surgery Date Site/Laterality Comments OTHER SURGICAL HISTORY Cervial cadaveric fusion - Ant. approach OTHER SURGICAL HISTORY Cervical Fusion-iliac bone graft -posterior approach Medical History Medical History Date Comments Hx Other Medical Neck stiffiness Hx Other Medical coronary artery disease status post non-ST elevati; Comments: MAF 02/08/2015 - Family History Medical History Relation Name Comments Lung cancer Father Cancer, lung; Stroke Mother Stroke; Tremor Mother Heart attack Sister Myocardial infa rction; Seizures Sister Relation Name Status Comments Father Mother (Age 82) Sister Social History Tobacco Use Types Packs/Day Years Used Date Smoking Tobacco: Every Day Tobacco Cessation:Ready to Q uit: Not Asked; Counseling Given: Not Answered Alcohol Use Standard Drinks/Week Comments Yes 0 (1 standard drink = 0.6 oz pur e alcohol) Sex and Gender Information Value Date Recorded Sex Assigned at Not on file Legal Sex Male 2:16 AM SPACER TYPE BAR AND SEGMENT Gender Identity Not on file Sexual Orientation Not on file Obstetrics History Last Filed Vital Signs Vital Sign Reading Time Taken Comments Blood Pressure 133/86 06/15/2024 11:02 AM CDT Pulse 74 06/15/2024 11:02 AM CDT Temperature 37.1 C (98.7 F) 07/11/2022 11:31 AM SPACER TYPE BAR AND SEGMENT Respiratory Rate - - Oxygen Saturation - - Inhaled Oxygen Concentration - - Weight 96.2 kg (212 lb) 06/15/2024 11:02 AM CDT Height 185.4 cm (6' 1 ) 06/15/2024 11:02 AM CDT Body Mass Index 27.97 06/15/2024 11:02 AM CDT Plan of Treatment Health Maintenance Due Date Last Done Comments Hepatitis C Screening 1965 Prostate Cancer Screening-PSA 1965 DTaP/Tdap/Td Vaccine (1 - Tdap) 01/13/1975 Hepatitis B Screening 01/13/1982 Regular Well Visit/Exam 18-64 01/13/1982 Zoster Vaccine (1 of 2) 01/13/2014 Depression Screening 06/20/2021 06/20/2020 Colon Cancer Screening-Colonoscopy 03/13/2024 03/13/2014 Influenza Vaccine (#1) 2024 3, 06/04/2023, 11/05/2016, Additional history exists Pneumococcal vaccine <65 (2 of 2 - PCV) 06/04/2024 06/04/2023 Colon Cancer Screening-CT Colonography Discontinued 03/13/2014 Colon Cancer Screening-DNA Stool Discontinued 03/13/20 14 Colon Cancer Screening-FIT Discontinued 03/13/2014 Colon Cancer Screening-Sigmoidoscopy Discontinued 03/13/2014 Procedures Procedure Name Priority Date/Time Associated Diagnosis Comments COLONOSCOPY REPORT 03/13/2014 from Last 3 Months or Most Recently Relevant to Health Maintenance Results * COLONOSCOPY REPORT (03/13/2014) Anatomical Region Laterality Modality Other Narrative 03/13/2014 Ordered by an unspecified provider. Historical Provider GI PROCEDURE ORDERABLES F inal Result from Last 3 Months or Most Recently Relevant to Health Maintenance [place] [address] [employer] [place] [address] WORK[employer] COMPENSATION GENERIC Care Teams Telephone Clerks Supervisor Relationship Specialty Start Date End Date Jefferson Francis MD PCP - General Family Practice 05/27/23
--- OUTSIDE RECORDS SUMMARY | 2024-09-28 23:52 | XMS_ITS | Referral Summary ---
Author Organization [facility] Address [address] [place] [address] Care Team Providers Care Dye Expert Name Role Phone Savage Portillo MD Primary Care Provider [phone] Source Comments [facility],non-owned Affiliates and Associated Physician Practices is amultiple site organization consisting of ambulatory clinics and hospital sitesin [place], [place], [place] and [place]. This disclosure is being madepursuant to the Care Everywhere program and may not contain all information available regarding this patient. Last updated 18.[facility] Allergies No known active allergies Medications * Be aware that medications may not be up to date on this document. Alwaysverify current medications with the patient. Medication Sig Dispensed Refills Start Date End Date Status Aspirin 81 MG Active simvastatin (ZOCOR) 40 MG tablet Take 40 mg by mouth at bedtime Active traZODone (DESYREL) 100 MG tablet Take 100 mg by mouth at bedtime Active buPROPion XL 24hr (WELLBUTRIN-XL) 150 MG tablet Take 150 mg by mouth once daily Active Venlafaxine HCl (VENLAFAXINE ER 24HR) 75 MG tablet Take 75 mg by mouth daily with breakfast Active Active Problems No known active problems Social History Tobacco Use Types Packs/Day Years Used Date Smoking Tobacco: Every Day Cigarettes 0.5 15 Smokeless Tobacco: Never Tobacco Cessation:Ready to Q uit: No; Counseling Given: No Alcohol Use Standard Drinks/Week Comments No 0 (1 standard drink = 0.6 oz pur e alcohol) Sex and Gender Information Value Date Recorded Sex Assigned at Not on file Gender Identity Not on file Sexual Orientation Not on file Last Filed Vital Signs Vital Sign Reading Time Taken Comments Blood Pressure 120/80 09/12/2019 3:31 PM PHP MAGENTO DEVELOPER Pulse 72 09/12/2019 3:31 PM PHP MAGENTO DEVELOPER Temperature 37 C (98.6 F) 09/12/2019 3:31 PM PHP MAGENTO DEVELOPER Respiratory Rate 17 10/06/2018 9:30 PM PHP MAGENTO DEVELOPER Oxygen Saturation 98% 09/12/2019 3:31 PM PHP MAGENTO DEVELOPER Inhaled Oxygen Concentration - - Weight 104.3 kg (230 lb) 09/12/2019 3:31 PM PHP MAGENTO DEVELOPER Height 188 cm (6' 2 ) 09/12/2019 3:31 PM PHP MAGENTO DEVELOPER Body Mass Index 29.53 09/12/2019 3:31 PM PHP MAGENTO DEVELOPER Plan of Treatment Not on file Procedures Procedure Name Priority Date/Time Associated Diagnosis Comments COMPREHENSIVE METABOLIC PANEL STAT 10/06/2018 7:31 PM PHP MAGENTO DEVELOPER from Last 3 Months or Most Recently Relevant to Health Maintenance Results * (ABNORMAL) COMPREHENSIVE METABOLIC PANEL (10/06/2018 7:31 PM PHP MAGENTO DEVELOPER) BUN 15 7 - 26 mg/dL 10/06/2018 8:04 PM [facility] Creatinine 1.1 0.6 - 1.2 mg/dL 10/06/2018 8:04 PM [facility] Sodium 138 136 - 145 mmol/L 10/06/2018 8:04 PM [facility] Potassium 3.8 3.5 - 4.5 mmol/L 10/06/2018 8:04 PM [facility] Chloride 106 98 - 107 mmol/L 10/06/2018 8:04 PM [facility] CO2 20(L) 22 - 29 mmol/L 10/06/2018 8:04 PM [facility] Glucose 82 70 - 115 mg/dL 10/06/2018 8:04 PM [facility] Calcium 9.2 8.4 - 10.2 mg/dL 10/06/2018 8:04 PM [facility] Protein Total 7.0 6.0 - 8.3 g/dL 10/06/2018 8:04 PM [facility] Albumin 4.0 3.4 - 5.0 g/dL 10/06/2018 8:04 PM [facility] Bilirubin Total 0.4 0.2 - 1.2 mg/dL 10/06/2018 8:04 PM [facility] Alkaline Phosphatase 68 40 - 150 Units/L 10/06/2018 8:04 PM [facility] ALT 21 0 - 55 Units/L 10/06/2018 8:04 PM [facility] AST 17 5 - 34 Units/L 10/06/2018 8:04 PM [facility] Anion Gap 16 8 - 18 10/06/2018 8:04 PM [facility] BUN/Creatinine Ratio 14 7 - 23 10/06/2018 8:04 PM [facility] Osmolality Calculated 286 270 - 300 mOsm/kg 10/06/2018 8:04 PM [facility] Albumin/Globulin Ratio 1.3 1.1 - 2.3 10/06/2018 8:04 PM [facility] eGFR >60 >60 mL/min/1.7 3 m2 10/06/2018 8:04 PM [facility] Blood BLOOD SPECIMEN / Unknown Venipuncture / Unknown 10/06/2018 7:31 PM PHP MAGENTO DEVELOPER 10/06/2018 7:43 PM [facility] Gonzalez Jo MD LAB - CHEMISTRY [facility] Organization Address City/State/ZIP Co de Phone Number [facility] [address] [phone] from Last 3 Months or Most Recently Relevant to Health Maintenance Care Teams Dye Expert Relationship Specialty Start Date End Date Savage Portillo MD PCP - General 08/04/19
--- OUTSIDE RECORDS SUMMARY | 2024-09-28 23:52 | XMS_ITS | Clinical Summary ---
Author Organization [facility] Address [facility] [place] [address] Care Team Providers Care Towel Inspector Name Role Phone Jefferson Francis MD Primary Care Provider Allergies No known active allergies Medications aspirin EC (ECOTRIN) 81 MG tablet Take 1 tablet (81 mg total) by mouth daily. Active buPROPion XL (WELLBUTRIN XL) 150 MG 24 hr tablet Take 1 tablet (150 mg total) by mouth daily. Active simvastatin (ZOCOR) 40 MG tablet Take 1 tablet (40 mg total) by mouth nightly at bedtime. Active traZODone (DESYREL) 100 MG tablet Take 1 tablet (100 mg total) by mouth nightly at bedtime. Active Venlafaxine HCl (VENLAFAXINE XR) 75 MG TABLET SR 24 HR 24 hr tablet Take 75 mg by mouth daily. Active Encounters Date Type Department Care Team Description 08/12/2024 6:23 PM AUTHORIZER - 08/12/2024 8:31 PM [facility] Emergency [facility] Emergency Room [address] [place] [address] Ricardo Garcia MD Back Pain; Shoulder Injury Discharge Disposition: Home or Self Care (Routine Discharge) 08/12/2024 Travel from Last 3 Months Social History Tobacco Use Types Packs/Day Years Used Date Smoking Tobacco: Every Day Cigarettes Smokeless Tobacco: Never Tobacco Cessation:Ready to Q uit: No Comments:long time Alcohol Use Standard Drinks/Week Comments Yes 0 (1 standard drink = 0.6 oz pur e alcohol) rarely Sex and Gender Information Value Date Recorded Sex Assigned at Not on file Legal Sex Male 9:39 PM CDT Gender Identity Not on file Sexual Orientation Not on file Last Filed Vital Signs Vital Sign Reading Time Taken Comments Blood Pressure 152/99 08/12/2024 8:00 PM AUTHORIZER Pulse 74 08/12/2024 6:26 PM AUTHORIZER Temperature 36.7 C (98 F) 08/12/2024 8:00 PM AUTHORIZER Respiratory Rate 18 08/12/2024 8:00 PM AUTHORIZER Oxygen Saturation 95% 08/12/2024 8:00 PM AUTHORIZER Inhaled Oxygen Concentration - - Weight 97.5 kg (215 lb) 08/12/2024 6:26 PM AUTHORIZER Height 188 cm (6' 2 ) 08/12/2024 6:26 PM AUTHORIZER Body Mass Index 27.6 08/12/2024 6:26 PM AUTHORIZER Plan of Treatment Health Maintenance Due Date Last Done Comments Colorectal Cancer Screening Colonoscopy (10 Years) 1965 Annual Physical 01/13/1967 Hepatitis C 01/13/1982 DTaP, Tdap and Td Vaccines ( 1 - Tdap) 01/13/1983 Zoster Vaccines (1 of 2) 01/13/2014 COVID-19 Vaccine (1 - 2023-2 5 season) 2024 Influenza Adult (#1) 2024 06/04/2023 Pneumococcal Vaccine: Pediat rics (0 to 5 Years) and At-Risk Patients (6 to 64 Years) (2 of 2 - PCV) 06/04/2024 06/04/2023 RSV Immunization or 60+ Years (1 - 1-dose 75+ series) 01/13/2039 Meningococcal B Vaccine Aged Out No l onger eligible based on patient's age to complete this topic Meningococcal Vaccine Aged Out No jacy serina eligible based on patient's age to complete this topic RSV Immunizations Under 20 Months Aged Out No longer eligible based on patient's age to complete this topic Procedures Procedure Name Priority Date/Time Associated Diagnosis Comments ECG 12-LEAD Routine 08/12/2024 7:31 PM AUTHORIZER from Last 3 Months Results * ECG 12 lead (08/12/2024 7:31 PM AUTHORIZER) 08/12/2024 7:31 PM AUTHORIZER Narrative [facility] ([facility] RAD - 08/13/2024 10:35 AM AUTHORIZER [facility] Test Date: 2024-08-12 Pat Name: ROBER NORIEGA Department: 85 Room: EXAM 303 Gender: Male Power Wood Sawyer: : 1965 Requested By: RICARDO GARCIA Order Number: [id number] Reading MD: Bryson Anderson Measurements Intervals [place] Rate: 61 P: 26 TN: 185 QRS: -33 QRSD: 113 T: 69 QT: 415 QTc: 418 Interpretive Statements SINUS RHYTHM LEFT AXIS DEVIATION [QRS AXIS < -30] INCOMPLETE RIGHT BUNDLE BRANCH BLOCK [90+ ms QRS DURATION, TERMINAL R IN V1/V2, 40+ ms S IN I/aVL/V4/V5/V6] NONSPECIFIC T-WAVE ABNORMALITY Compared to ECG 12/09/2020 19:39:35 Incomplete right bundle-branch block now present T-wave abnormality now present Sinus bradycardia no longer present Intraventricular conduction delay no longer present ORIZER Procedure Note Bryson Anderson MD - 08/13/2024 [facility] Test Date: 2024-08-12 Pat Name: ROBER NORIEGA Department: 85 Room: EXAM 303 Gender: Male Power Wood Sawyer: : 1965 Requested By: RICARDO GARCIA Order Number: [id number] Reading MD: Bryson Anderson Measurements Intervals [place] Rate: 61 P: 26 TN: 185 QRS: -33 QRSD: 113 T: 69 QT: 415 QTc: 418 Interpretive Statements SINUS RHYTHM LEFT AXIS DEVIATION [QRS AXIS < -30] INCOMPLETE RIGHT BUNDLE BRANCH BLOCK [90+ ms QRS DURATION, TERMINAL RIN V1/V2, 40+ ms S IN I/aVL/V4/V5/V6] NONSPECIFIC T-WAVE ABNORMALITY Compared to ECG 12/09/2020 19:39:35 Incomplete right bundle-branch block now present T-wave abnormality now present Sinus bradycardia no longer present Intraventricular conduction delay no longer present ORIZER Ricardo Garcia MD ECG ORDERABLES Final Resul t [facility] RAD from Last 3 Months Insurance [employer] Care Teams Towel Inspector Relationship Specialty Start Date End Date Jefferson Francis MD [address] [place] [address] PCP - General FAMILY PRACTICE 08/12/24
--- OUTSIDE RECORDS SUMMARY | 2024-09-28 23:52 | XMS_ITS | Continuity of Care Document ---
Author Organization [facility] Address [address] [place] [address] Phone Care Team Providers Care Meter Reader Name Role Phone Rober Sierra MD Unavailable Unavailable Advance Directives Directive Yes / No Effective Date File Name No Information Encounters Encounter Description Practice Location Reason(s) For Visit Diagnoses Date Provider Providers Copied on Encounter [facility], [address], [place], [place], [id number], tel:[phone] [facility]BIO SUB Rigo Richter. [address], [place], [place], [id number] . tel: [phone] Family History Family Member Type Diagnosis Age At Onset No Information Payers Payer name Insurance type Covered libertarian ID Authoriza tion(s) No Information Social History Type Description Quantity Date Captured Comments Sex Male Smoking Status No Information Chief Complaint And Reason For Visit No Information Reason For Referral Reason For Referral No Information History Of Present Illness Encounter Date Complaint History Of Prese nt Illness No Information Functional Status Date Functional Assessmen t No Information Instructions Date Instruction Additional Infor mation No Information Assessments Type Assessment Date No Information Patient Care Teams Name Effective Dates (start - stop) Status Members No Information
--- OUTSIDE RECORDS SUMMARY | 2024-09-28 23:52 | XMS_ITS | Encounter Summary ---
Author Organization [facility] Address [address] [place] [address] Phone Care Team Providers Care Distribution Transformer Assembler Name Role Phone Jefferson Francis MD Primary Care Provider [phone] Reason for Visit * Medication Authorization (Routine) - Closed Specialty Diagnoses / Procedures Referred By Contnatan t Referred To Contact Diagnoses Cervical dystonia Abiodun Ruff MD [address] [place] [address] Phone: tel: fax: Referral ID Status Reason Start Date Expiration Date Visits Re quested Visits Authorized [id number] Closed 08/24/2024 08/23/2025 1 1 Encounter Details Date Type Department Care Team (Latest Contact Info) Description 09/28/2024 11:20 AM INTAKE CLINICIAN Procedure visit [facility] Movement Disorders [address] [place] [address] Medicine 6th [place] [address] [place] [address] Abiodun Ruff MD [address] [place] [address] Cervical dystonia (Primary Dx) Social History Tobacco Use Types Packs/Day Years Used Date Smoking Tobacco: Every Day Alcohol Use Standard Drinks/Week Comments Yes 0 (1 standard drink = 0.6 oz pur e alcohol) Sex and Gender Information Value Date Recorded Sex Assigned at Not on file Legal Sex Male 2:16 AM INTAKE CLINICIAN Gender Identity Not on file Sexual Orientation Not on file documented as of this encounter Progress Notes * Abiodun Ruff MD - 09/28/2024 11:20 AM CST Images from the original note were not included. Movement Disorders Center [facility] Office/Procedure Visit Patient Name: Rober Noriega Medical Record Number (MRN): [id number] Date of (): 1965 Encounter Date: 09/28/2024 Clinician: Abiodun Ruff MD Chief Complaint Rober Noriega is here today for repeat botulinum toxin injections. The encounter diagnosis was Cervical dystonia.. HPI He had good response to botulinum toxin injections 06/15/24. Benefit included less neck tremor. SRStremor at his best: 2. Benefit began to wear off in the past 3 weeks. SRS tremor today: 3. He denies side effects from botulinum toxin injections. He still has some neck tremor. Medications Current Outpatient Medications: aspirin (ASPIR-81) 81 mg tablet, take 1 tablet by oral route every day, Disp: 0, Rfl: 0 atorvastatin (LIPITOR) 40 mg tablet, , Disp: , Rfl: buPROPion XL (WELLBUTRIN XL) 300 mg 24 hr tablet, , Disp: , Rfl: clopidogreL (PLAVIX) 75 mg tablet, , Disp: , Rfl: famotidine (PEPCID) 40 mg tablet, , Disp: , Rfl: IBU 600 mg tablet, , Disp: , Rfl: simvastatin (ZOCOR) 40 mg tablet, take 1 tablet (40MG) by oral route every day in the evening, Disp: 30, Rfl: 6 traZODone (DESYREL) 100 mg tablet, take 1 (100MG) by oral route every day at bedtime, Disp: 0, Rfl:0 venlafaxine XR (EFFEXOR XR) 75 mg 24 hr capsule, take 1 capsule by oral route every day with food, Disp: 0, Rfl: 0 Current Facility-Administered Medications: [START ON 09/14/2024] onabotulinumtoxin A (BOTOX) injection 200 Units, 200 Units, intramuscular, Once (for CAM), Modified Medications No medications on file Allergies He has no known allergies. General Examination: There were no vitals taken for this visit. 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 He had benefit from btx in the past but this benefit has worn off. He is a good candidate for repeat injections today. Risks/benefits of btx discussed and signed consent obtained. Recommendations Botulinum toxin injected without EMG guidance. Botox 200 U injected into the following muscles using a 1 cc dilution: 15U Splenius Capitis (left) 75U Sternocleidomastoid (left) 10U Splenius Capitis (right) 100U Sternocleidomastoid (right) Follow-up Return for botulinum toxin injections in 90+ days. Isidra Bevelry MD Movement Neurology Fellow [facility] in [place] Attestation I was present for all procedures documented above. Abiodun Ruff MD Credit Resolution Representative, Neurology Movement Disorders Section Thank you for allowing me to participate in the care of your patient. If you have any questions, feel free to contact me at [phone]. KE CLINICIAN documented in this encounter Plan of Treatment Not on file documented as of this encounter Visit Diagnoses Diagnosis Cervical dystonia- Primary Spasmodic torticollis documented in this encounter Orders Medications Ordered That Chris ht Not Have Been Administered Count Last Ordered Date First Ordered Date onabotulinumtoxin A (BOTOX) injection 200 Units 1 06/16/2024 documented in this encounter Care Teams Distribution Transformer Assembler Relationship Specialty Start Date End Date Jefferson Francis MD PCP - General Family Practice 05/27/23 documented as of this encounter
--- OUTSIDE RECORDS SUMMARY | 2024-09-28 23:52 | XMS_ITS | Patient Health Summary ---
Author Organization [facility] Address [address] [place] [address] Care Team Providers Care Ceramic Engineering Professor Name Role Phone Savage Portillo MD Primary Care Provider [phone] Note from [facility],non-owned Affiliates and Associated Physician Practices is amultiple site organization consisting of ambulatory clinics and hospital sitesin [place], [place], [place] and [place]. This disclosure is being madepursuant to the Care Everywhere program and may not contain all information available regarding this patient. Last updated 18.[facility] Allergies No known active allergies Medications * Be aware that medications may not be up to date on this document. Alwaysverify current medications with the patient. * Aspirin 81 MG * simvastatin (ZOCOR) 40 MG tablet Take 40 mg by mouth at bedtime * traZODone (DESYREL) 100 MG tablet Take 100 mg by mouth at bedtime * buPROPion XL 24hr (WELLBUTRIN-XL) 150 MG tablet Take 150 mg by mouth once daily * Venlafaxine HCl (VENLAFAXINE ER 24HR) 75 MG tablet Take 75 mg by mouth daily with breakfast Active Problems No known active problems Social [...] Comments Blood Pressure 120/80 09/12/2019 3:31 PM TECHNICAL CONSULTANT Pulse 72 09/12/2019 3:31 PM TECHNICAL CONSULTANT Temperature 37 C (98.6 F) 09/12/2019 3:31 PM TECHNICAL CONSULTANT Respiratory Rate 17 10/06/2018 9:30 PM TECHNICAL CONSULTANT Oxygen Saturation 98% 09/12/2019 3:31 PM TECHNICAL CONSULTANT Inhaled Oxygen Concentration - - Weight 104.3 kg (230 lb) 09/12/2019 3:31 PM TECHNICAL CONSULTANT Height 188 cm (6' 2 ) 09/12/2019 3:31 PM TECHNICAL CONSULTANT Body Mass Index 29.53 09/12/2019 3:31 PM TECHNICAL CONSULTANT Procedures * CARDIAC EKG ORDER(Performed 12/01/2018) * XR WRIST RIGHT 3VW OR MORE(Performed 10/06/2018) Performed for Accidental fall involving sidewalk curb, initial encounter * EKG 12-LEAD(Performed 10/06/2018) Performed for Accidental fall involving sidewalk curb, initial encounter * GLUCOSE - POINT OF CARE(Performed 10/06/2018) * TROPONIN I(Performed 10/06/2018) * PTT [facility](Performed 10/06/2018) * LIPASE BLOOD(Performed 10/06/2018) * PT-INR [facility](Performed 10/06/2018) * ALCOHOL ETHYL BLOOD(Performed 10/06/2018) * COMPREHENSIVE METABOLIC PANEL(Performed 10/06/2018) * CBC W AUTO DIFFERENTIAL(Performed 10/06/2018) * DERMATOPATHOLOGY(Performed 02/28/2013) Results * CARDIAC EKG ORDER (12/01/2018 1:54 PM CDT) Narrative 12/01/2018 1:54 PM CDT Ordered by an unspecified provider. Scanned Document CARDIAC SERVICES ORD ERABLES * XR WRIST RIGHT 3VW OR MORE (10/06/2018 9:02 PM TECHNICAL CONSULTANT) Anatomical Region Laterality Modality Wrist / Hand Radiographic Haleigh ging 10/07/2018 8:15 AM TECHNICAL CONSULTANT Impressions 10/07/2018 8:47 AM TECHNICAL CONSULTANT IMPRESSION: No acute osseous injury. I, Dr. BRAYDEN DYER have personally reviewed and interpreted this examination/study. This report was electronically signed by BRAYDEN DYER on 10/07/2018 8:47 AM . Narrative 10/07/2018 8:47 AM TECHNICAL CONSULTANT EXAMINATION: XR WRIST RIGHT 3VW OR MORE HISTORY: wrist pain fall COMPARISON: None. FINDINGS: The osseous structures are intact and well aligned without acute fracture or dislocation. The joint spaces are preserved. Bone density and texture are normal. No soft tissue swelling is present. Procedure Note Brayden Dyer, DO - 10/07/2018 EXAMINATION: XR WRIST RIGHT 3VW OR MORE HISTORY: wrist pain fall COMPARISON: None. FINDINGS: The osseous structures are intact and well aligned without acutefracture or dislocation. The joint spaces are preserved. Bone density and texture are normal. No soft tissue swelling is present. IMPRESSION: No acute osseous injury. I, Dr. BRAYDEN DYER have personally reviewed and interpreted this examination/study. This report was electronically signed by BRAYDEN DYER on 10/07/2018 8:47 AM . Gonzalez Jo MD DIAGNOSTIC IMAGING O RDERABLES * EKG 12-LEAD (10/06/2018 7:51 PM TECHNICAL CONSULTANT) Pathologist [facility] Ventricular Rate 69 BPM [facility] Atrial Rate 69 BPM [facility] P-R Interval 172 ms [facility] QRS Duration ms 102 ms [facility] Q-T Interval ms 412 ms [facility] QTC Calculation (Bezet) 441 ms [facility] Calculated P Kennard 38 degrees [facility] Calculated R Kennard -37 degrees [facility] Calculated T Kennard 67 degrees [facility] Interpretation EKG NORMAL SINUS RHYTHM LEFT AXIS DEVIATION ABNORMAL ECG NO PREVIOUS ECGS AVAILABLE Confirmed by Wen VILLAVICENCIO, GEMINI ([id number]), newspaper managing editor Charisse Dent ([id number]) on 11/22/2018 7:02:02 PM [facility] MUSE 10/06/2018 7:51 PM TECHNICAL CONSULTANT 11/22/2018 7:02 PM CDT Gonzalez Jo MD ECG ORDERABLES [facility] * GLUCOSE - POINT OF CARE (10/06/2018 7:39 PM TECHNICAL CONSULTANT) Pathologist [facility] Glucose WB/POC 86 70 - 115 mg/dL 10/07/2018 1:23 AM [facility] Specimen Type Arterial/C apillary 10/07/2018 1:23 AM [facility] Blood BLOOD SPECIMEN / Unknown 10/06/2018 7:39 PM TECHNICAL CONSULTANT 10/07/2018 1:23 AM TECHNICAL CONSULTANT Narrative [facility] - 10/07/2018 1:23 AM TECHNICAL CONSULTANT Inking Machine Tender: TIARRA HANSEN Provider Unknown LAB - POINT OF CARE ORDERABLES Performing Organization Address [facility]/ZIP Co de Phone Number [address] [phone] * PTT [facility] (10/06/2018 7:31 PM TECHNICAL CONSULTANT) APTT 25.0 23.0 - 38.4 Seconds 10/06/2018 7:58 PM [facility] Comment: Suggested therapeutic range for full dose I.V. heparin therapy for venous thromboembolism is 66.0-91.0 seconds. Blood BLOOD SPECIMEN / Unknown Venipuncture / Unknown 10/06/2018 7:31 PM TECHNICAL CONSULTANT 10/06/2018 7:42 PM TECHNICAL CONSULTANT Gonzalez Jo MD LAB - COAGULATION OR DERABLES Performing Organization Address [facility] Co de Phone Number [address] [phone] * PT-INR [facility] (10/06/2018 7:31 PM TECHNICAL CONSULTANT) PT 13.2 12.1 - 14.8 Seconds 10/06/2018 7:57 PM [facility] INR 1.1 See Comment 10/06/2018 7:57 PM [facility] Comment: The suggested therapeutic range for standard coumadin (warfarin) therapy is an INR of 2.0-3.0. For high-risk patients (Mechanical Mitral Valve Prosthesis, etc.), the suggested prophylactic therapeutic range is an INR of 2.5-3.5. Blood BLOOD SPECIMEN / Unknown Venipuncture / Unknown 10/06/2018 7:31 PM TECHNICAL CONSULTANT 10/06/2018 7:42 PM TECHNICAL CONSULTANT Gonzalez Jo MD LAB - COAGULATION OR DERABLES [address] [phone] * TROPONIN I (10/06/2018 7:31 PM TECHNICAL CONSULTANT) Troponin I <0.010 <0.032 ng/mL 10/06/2018 8:10 PM [facility] Blood BLOOD SPECIMEN / Unknown Venipuncture / Unknown 10/06/2018 7:31 PM TECHNICAL CONSULTANT 10/06/2018 7:43 PM TECHNICAL CONSULTANT Gonzalez Jo MD LAB - CHEMISTRY ORDE RABLES Performing Organization Address [facility]/ZIP Co de Phone Number [address] [phone] * CBC W AUTO DIFFERENTIAL (10/06/2018 7:31 PM TECHNICAL CONSULTANT) Pathologist [facility] WBC 8.0 3.5 - 10.5 10 3/uL 10/06/2018 7:46 PM [facility] RBC 5.06 4.30 - 5.70 10 6/uL 10/06/2018 7:46 PM [facility] Hemoglobin 16.0 13.5 - 17.5 g/dL 10/06/2018 7:46 PM [facility] Hematocrit 45.8 39.0 - 50.0 % 10/06/2018 7:46 PM [facility] MCV 90.5 81.0 - 97.0 fL 10/06/2018 7:46 PM [facility] MCH 31.6 28.0 - 34.0 pg 10/06/2018 7:46 PM [facility] MCHC 34.9 32.0 - 36.0 g/dL 10/06/2018 7:46 PM [facility] Platelet Count 168 150 - 400 10 3/uL 10/06/2018 7:46 PM [facility] RDW-SD 42.1 36.0 - 50.0 fL 10/06/2018 7:46 PM [facility] RDW-CV 12.7 11.2 - 14.8 % 10/06/2018 7:46 PM [facility] MPV 10.9 9.3 - 12.8 fL 10/06/2018 7:46 PM [facility] nRBC Absolute 0.00 0 10 3/uL 10/06/2018 7:46 PM [facility] nRBC Auto 0.0 0 /100 WBC 10/06/2018 7:46 PM [facility] Neutrophils % 67.8 35.0 - 70.0 % 10/06/2018 7:46 PM [facility] Lymphocytes % 25.2 19.7 - 55.1 % 10/06/2018 7:46 PM [facility] Monocytes % 5.5 3.0 - 15.0 % 10/06/2018 7:46 PM [facility] Eosinophils % 0.9 0.0 - 6.0 % 10/06/2018 7:46 PM [facility] Basophil % 0.5 0.0 - 1.5 % 10/06/2018 7:46 PM [facility] Neutrophils Absolute 5.4 1.6 - 7.0 10 3/uL 10/06/2018 7:46 PM [facility] Lymphocyte Absolute 2.0 0.8 - 2.9 10 3/uL 10/06/2018 7:46 PM [facility] Monocytes Absolute 0.44 0.14 - 0.66 10 3/uL 10/06/2018 7:46 PM [facility] Eosinophils Absolute 0.07 0.00 - 0.45 10 3/uL 10/06/2018 7:46 PM [facility] Basophils Absolute 0.04 0.00 - 0.06 10 3/uL 10/06/2018 7:46 PM [facility] Immature Granulocytes % 0.1 0.0 - 1.0 % 10/06/2018 7:46 PM [facility] Blood BLOOD SPECIMEN / Unknown Venipuncture / Unknown 10/06/2018 7:31 PM TECHNICAL CONSULTANT 10/06/2018 7:43 PM TECHNICAL CONSULTANT Gonzalez Jo MD LAB - HEMATOLOGY ORD ERABLES [facility] [address] [phone] * (ABNORMAL) COMPREHENSIVE METABOLIC PANEL (10/06/2018 7:31 PM [facility]) BUN 15 7 - 26 mg/dL 10/06/2018 8:04 PM [facility] Creatinine 1.1 0.6 - 1.2 mg/dL 10/06/2018 8:04 PM [facility] Sodium 138 136 - 145 mmol/L 10/06/2018 8:04 PM [facility] Potassium 3.8 3.5 - 4.5 mmol/L 10/06/2018 8:04 PM [facility] Chloride 106 98 - 107 mmol/L 10/06/2018 8:04 PM [facility] CO2 20(L) 22 - 29 mmol/L 10/06/2018 8:04 PM [facility] Glucose 82 70 - 115 mg/dL 10/06/2018 8:04 PM [facility] Calcium 9.2 8.4 - 10.2 mg/dL 10/06/2018 8:04 PM [facility] Protein Total 7.0 6.0 - 8.3 g/dL 10/06/2018 8:04 PM [facility] Albumin 4.0 3.4 - 5.0 g/dL 10/06/2018 8:04 PM [facility] Bilirubin Total 0.4 0.2 - 1.2 mg/dL 10/06/2018 8:04 PM [facility] Alkaline Phosphatase 68 40 - 150 Units/L 10/06/2018 8:04 PM [facility] ALT 21 0 - 55 Units/L 10/06/2018 8:04 PM [facility] AST 17 5 - 34 Units/L 10/06/2018 8:04 PM [facility] Anion Gap 16 8 - 18 10/06/2018 8:04 PM [facility] BUN/Creatinine Ratio 14 7 - 23 10/06/2018 8:04 PM [facility] Osmolality Calculated 286 270 - 300 mOsm/kg 10/06/2018 8:04 PM [facility] Albumin/Globulin Ratio 1.3 1.1 - 2.3 10/06/2018 8:04 PM TECHNICAL CONSULTANT [facility] eGFR >60 >60 mL/min/1.7 3 m2 10/06/2018 8:04 PM TECHNICAL CONSULTANT [facility] Blood BLOOD SPECIMEN / Unknown Venipuncture / Unknown 10/06/2018 7:31 PM TECHNICAL CONSULTANT 10/06/2018 7:43 PM TECHNICAL CONSULTANT Gonzalez Jo MD LAB - CHEMISTRY [facility] Performing Organization Address City/[facility]/ZIP Co de Phone Number [address] [phone] * LIPASE BLOOD (10/06/2018 7:31 PM TECHNICAL CONSULTANT) Lipase 40 8 - 78 Units/L 10/06/2018 8:04 PM TECHNICAL CONSULTANT [facility] Blood BLOOD SPECIMEN / Unknown Venipuncture / Unknown 10/06/2018 7:31 PM TECHNICAL CONSULTANT 10/06/2018 7:43 PM TECHNICAL CONSULTANT Gonzalez Jo MD LAB - CHEMISTRY [facility] Performing Organization Address [facility] Co de Phone Number [address] [phone] * ALCOHOL ETHYL BLOOD (10/06/2018 7:31 PM TECHNICAL CONSULTANT) Interpretation Ethanol None Detected None Detected mg/dL 10/06/2018 8:41 PM TECHNICAL CONSULTANT [facility] Comment: Ethanol levels less than 10 mg/dL are resulted as None detected . Blood BLOOD SPECIMEN / Unknown Venipuncture / Unknown 10/06/2018 7:31 PM TECHNICAL CONSULTANT 10/06/2018 7:43 PM TECHNICAL CONSULTANT Gonzalez Jo MD LAB - CHEMISTRY [facility] Performing Organization Address [facility] [place] Number [place] [address], [facility] [phone] * PATHOLOGY TISSUE FOR DERMATOLOGY (02/28/2013 12:00 AM CDT) Result CASE: [id number] PATIENT: ROBER NORIEGA PATHOLOGIC DIAGNOSIS: Left groin: SEBORRHEIC KERATOSIS, IRRITATED CLINICAL DATA: SK. GROSS DESCRIPTION: Received is one formalin filled container labeled with the patient's name and designated left groin. The specimen consists of a shave biopsy measuring 9x8x2 mm. Jar 0. MICROSCOPIC DESCRIPTION: There is acanthosis consisting of fairly uniform squamous cells with eosinophilic cytoplasm and squamous eddies. Electronically signed out by Dilcia Tilley M.D. 03/02/2013 12:01:40PM [facility] Comment: Performed at: Dermatopathology Laboratory [facility] - Department of Dermatology [address] [place] [address], [address] [place] [address] Phone number: [phone] Toll Free: [phone] FAX: [phone] 02/28/2013 03/01/2013 [facility] LAB - PATHOLOGY/CYTO LOGY ORDERABLES [facility] [address] [place] [address]. [address] Lab [address] [phone] Care Teams Ceramic Engineering Professor Relationship Specialty Start Date End Date Savage Portillo MD PCP - General 08/04/19
--- OUTSIDE RECORDS SUMMARY | 2024-09-28 23:52 | XMS_ITS | Clinical Summary ---
Author Organization [facility] Address [address] [place] [address] Care Team Providers Care Helper Marble Finisher Name Role Phone Savage Portillo MD Primary Care Provider [phone]- [phone] Source Comments [facility],non-owned Affiliates and Associated Physician Practices is amultiple site organization consisting of ambulatory clinics and hospital sitesin [place], [place], [place] and [place]. This disclosure is being madepursuant to the Care Everywhere program and may not contain all information available regarding this patient. Last updated 18.[facility] Allergies No known active allergies Medications * [...] Active Active Problems No known active problems Family History Medical History Relation Name Comments Cancer - Lung Father CAD (Coronary Artery Disease) Mother Seizures Sister Relation Name Status Comments Father Mother Sister Social History Tobacco Use Types Packs/Day [...] Comments Blood Pressure 120/80 09/12/2019 3:31 PM ROCKET ASSEMBLY OPERATOR Pulse 72 09/12/2019 3:31 PM ROCKET ASSEMBLY OPERATOR Temperature 37 C (98.6 F) 09/12/2019 3:31 PM ROCKET ASSEMBLY OPERATOR Respiratory Rate 17 10/06/2018 9:30 PM ROCKET ASSEMBLY OPERATOR Oxygen Saturation 98% 09/12/2019 3:31 PM ROCKET ASSEMBLY OPERATOR Inhaled Oxygen Concentration - - Weight 104.3 kg (230 lb) 09/12/2019 3:31 PM ROCKET ASSEMBLY OPERATOR Height 188 cm (6' 2 ) 09/12/2019 3:31 PM ROCKET ASSEMBLY OPERATOR Body Mass Index 29.53 09/12/2019 3:31 PM ROCKET ASSEMBLY OPERATOR Plan of Treatment Health Maintenance Due Date Last Done Comments COLOGUARD (AGES 45-75) - COL ON CA SCREENING 1964 COLON MONITORING 1964 COLONOSCOPY - COLON CA SCREENING 1964 CT COLONOGRAPHY - COLON CA SCREENING 1964 Colorectal Cancer Screening 1964 FIT - COLON CA SCREENING 1964 FLEX SIG - COLON CA SCREENING 1964 HIV SCREENING 01/13/1979 HEPATITIS C SCREENING 01/09/1982 DTAP/TDAP/TD VACCINES (1 - Tdap) 01/13/1983 PNEUMOCOCCAL VACCINE 50+ (1 of 2 - PCV) 01/13/1983 PNEUMOCOCCAL VACCINE (1 of 2 - PCV) 01/13/1983 ZOSTER VACCINE (1 of 2) 01/13/2014 SCREENING FOR DIABETES 10/06/2021 9, 10/06/2018 COVID-19 VACCINE ( - 2023-2 5 season) 2024 INFLUENZA VACCINE (#1) 2024 DEPRESSION SCREENING 08/24/2024 Respiratory Syncytial Virus (RSV) Vaccine Pt: or over 60 yrs (1 - 1-dose 75+ series) 01/13/2039 HEPATITIS B VACCINE Aged Out No longe r eligible based on patient's age to complete this topic HIB VACCINE Aged Out No longer eligi ble based on patient's age to complete this topic HPV VACCINE Aged Out No longer eligi ble based on patient's age to complete this topic MENINGOCOCCAL (Group B) VACCINE Aged Out No longer eligible b ased on patient's age to complete this topic MENINGOCOCCAL VACCINE Aged Out No jacy serina eligible based on patient's age to complete this topic Procedures Procedure Name Priority Date/Time Associated Diagnosis Comments COMPREHENSIVE METABOLIC PANEL STAT 10/06/2018 7:31 PM ROCKET ASSEMBLY OPERATOR from Last 3 Months or Most Recently Relevant to Health Maintenance Results * (ABNORMAL) COMPREHENSIVE METABOLIC PANEL (10/06/2018 7:31 PM ROCKET ASSEMBLY OPERATOR) BUN 15 7 - 26 mg/dL 10/06/2018 8:04 PM [facility] Creatinine 1.1 0.6 - 1.2 mg/dL 10/06/2018 8:04 PM [facility] Sodium 138 136 - 145 mmol/L 10/06/2018 8:04 PM [facility] Potassium 3.8 3.5 - 4.5 mmol/L 10/06/2018 8:04 PM [facility] Chloride 106 98 - 107 mmol/L 10/06/2018 8:04 PM [facility] CO2 20(L) 22 - 29 mmol/L 10/06/2018 8:04 PM [facility] Glucose 82 70 - 115 mg/dL 10/06/2018 8:04 PM [facility] Calcium 9.2 8.4 - 10.2 mg/dL 10/06/2018 8:04 PM [facility] Protein Total 7.0 6.0 - 8.3 g/dL 10/06/2018 8:04 PM [facility] Albumin 4.0 3.4 - 5.0 g/dL 10/06/2018 8:04 PM [facility] Bilirubin Total 0.4 0.2 - 1.2 mg/dL 10/06/2018 8:04 PM [facility] Alkaline Phosphatase 68 40 - 150 Units/L 10/06/2018 8:04 PM [facility] ALT 21 0 - 55 Units/L 10/06/2018 8:04 PM [facility] AST 17 5 - 34 Units/L 10/06/2018 8:04 PM [facility] Anion Gap 16 8 - 18 10/06/2018 8:04 PM [facility] BUN/Creatinine Ratio 14 7 - 23 10/06/2018 8:04 PM [facility] Osmolality Calculated 286 270 - 300 mOsm/kg 10/06/2018 8:04 PM [facility] Albumin/Globulin Ratio 1.3 1.1 - 2.3 10/06/2018 8:04 PM [facility] eGFR >60 >60 mL/min/1.7 3 m2 10/06/2018 8:04 PM [facility] Blood BLOOD SPECIMEN / Unknown Venipuncture / Unknown 10/06/2018 7:31 PM ROCKET ASSEMBLY OPERATOR 10/06/2018 7:43 PM [facility] Gonzalez Jo MD LAB - CHEMISTRY [facility] Organization Address City/State/ZIP Co de Phone Number [facility] [address] [phone] from Last 3 Months or Most Recently Relevant to Health Maintenance Care Teams Helper Marble Finisher Relationship Specialty Start Date End Date Savage Portillo MD PCP - General 08/04/19
--- OUTSIDE RECORDS SUMMARY | 2024-09-28 23:52 | XMS_ITS | Continuity of Care Document ---
Author Organization [facility] Address [address] [place] [address] [facility] [address] [place] [address] Phone Care Team Providers Care Grounds/Maintenance Specialist Name Role Phone CocohSubham horn Unavailable Unavailable Procedures Procedure Date Eye Exam, New Patient Advance Directives Directive Yes / No Effective Date File Name No Information Encounters Encounter Description Practice Location Reason(s) For Visit Diagnoses Date Provider Providers Copied on Encounter [facility], [id number] [place] [address] [address], [place], [place], [id number], [place] tel:[phone] [facility] No Information [address] Jillian Shubham. [address] [facility] [address], [place], [address], [place]. tel:[phone] Family History Family Member Type Diagnosis Age At Onset No Information Payers Payer name Insurance type Covered republican ID Authoriza tion(s) Medicare [facility] [id number] Social History Type Description Quantity Date Captured [...]
--- OUTSIDE RECORDS SUMMARY | 2024-09-28 23:52 | XMS_ITS | Referral Summary ---
Author Organization [facility] [address] Address [address] [place] [address] Care Team Providers Care Assistant Sales Director Name Role Phone Jefferson Francis MD Primary Care Provider [phone] Encounters Date Type Department Care Team Description 09/28/2024 11:[address] SCAN TECH Procedure visit [facility] Movement Disorders [address] [place] [address] [address] [place] [address] [place] [id number] Abiodun Ruff MD Cervical dystonia (Primary Dx) from Last 3 Months Allergies No known active allergies Medications simvastatin [...] 06/20/2020 Assessment & Plan (07/11/2022 12:[address] SCAN TECH): Mr. Noreiga presented for a follow up. He continued [...] 06/20/2020 Assessment & Plan (07/11/2020 7:[address] SCAN TECH): He has cervical dystonia with head/neck tremor [...] (11/28/2016): History of depression Coronary arteriosclerosis in [place] artery 07/02 Overview (11/28/2016): Coronary artery disease involving [place] coronary artery of [place] heart without angina pectoris Hyperlipidemia 07/02/2016 Overview [...] (11/28/2016): Hypercholesterolemia Depression 02/08/2015 Overview (11/28/2016): Depression Social History Tobacco Use Types Packs/Day Years Used Date Smoking Tobacco: Every Day Tobacco Cessation:Ready to Q uit: Not Asked; Counseling Given: Not Answered Alcohol Use Standard Drinks/Week Comments Yes 0 (1 standard drink = 0.6 oz pur e alcohol) Sex and Gender Information Value Date Recorded Sex Assigned at Not on file Legal Sex Male 2:[address] SCAN TECH Gender Identity Not on file Sexual Orientation Not on file Last Filed Vital Signs Vital Sign Reading Time Taken Comments Blood Pressure 133/86 06/15/2024 11:02 AM CDT Pulse 74 06/15/2024 11:02 AM CDT Temperature 37.1 C (98.7 F) 07/11/2022 11:[address] SCAN TECH Respiratory Rate - - Oxygen Saturation - - Inhaled Oxygen Concentration - - Weight 96.2 kg (212 lb) 06/15/2024 11:02 AM CDT Height 185.4 cm (6' 1 ) 06/15/2024 11:02 AM CDT Body Mass Index 27.97 06/15/2024 11:02 AM CDT Plan of Treatment Not on file Procedures Procedure Name Priority Date/Time Associated Diagnosis Comments COLONOSCOPY REPORT 03/13/2014 from Last 3 Months or Most Recently Relevant to Health Maintenance Results * COLONOSCOPY REPORT (03/13/2014) Anatomical Region Laterality Modality Other Narrative 03/13/2014 Ordered by an unspecified provider. us Historical Provider GI PROCEDURE ORDERABLES F inal Result from Last 3 Months or Most Recently Relevant to Health Maintenance Insurance [employer] MEDICARE PPO * Guarantor: [employer] Account Type Relation to Patient Date of Phone Billing Address [email or web address] Employ[employer] [address] [place] [address] [employer] GENERIC Care Teams Assistant Sales Director Relationship Specialty Start Date End Date Jefferson Francis MD PCP - General Family Practice 05/27/23
== END 2024-09-28 23:30 | disposition left against medical advice (07) ==
PROVIDERS: PCP Family Medicine
DX: M54.2 Cervicalgia (principal)
CPT/HCPCS: 99199